=== PATIENT | male | born 1945 | race Caucasian/White ===

== ENCOUNTER → 2017-02-11 | Outpatient (REF) | payer MEDICARE, OTHER | LOC: M SMT 17:17 | PROVIDERS: ATTEND Urology | DX: C67.9 Malignant neoplasm of bladder, unspecified (principal) ==

== ENCOUNTER → 2017-08-16 | Outpatient (REF) | payer MEDICARE, OTHER | LOC: M SMT 17:36 | DX: Z85.51 Personal history of malignant neoplasm of bladder (principal) | CPT/HCPCS: 88108 ==

== ENCOUNTER → 2018-02-14 | Outpatient (REF) | payer MEDICARE, OTHER | LOC: M SMT 17:48 | DX: Z85.51 Personal history of malignant neoplasm of bladder (principal) | CPT/HCPCS: 88108 ==

== ENCOUNTER 2019-02-28 11:32 | Inpatient (IN) | payer OTHER, MEDICARE ==
[~2019-02-28] VITALS: Ht 175.3 cm; Wt 65.8 kg
[2019-02-28] MEDS ORDERED: ASPI81TA85 PO (11:44)
[2019-02-28] MEDS ORDERED: ATEN50TA2 PO (11:44)
[2019-02-28] MEDS ORDERED: SIMV40TA2 PO (11:44)
[2019-02-28] MEDS ORDERED: METF500T13 PO (11:44)
[2019-02-28] MEDS ORDERED: CLOP75TA2 PO (11:44)
[2019-02-28] MEDS ORDERED: AMLO10TA5 PO (11:44)
[2019-02-28] MEDS ORDERED: IPRATROPIUM 0.5MG/ALBUTEROL 2.5MG INH SOL UD 3ML (DUONEB)(J7620) NEB ONE (12:45)
[2019-02-28] MEDS ORDERED: ALBUTEROL SULFATE 2.5 MG/0.5 ML INH NEB SOLN INH ONE (12:45)
[2019-02-28 12:59] LABS: BASO % 0.1 % (0.0-1.0); EOS % 0.5 % (0.0-3.0); HEMATOCRIT 51.8 % (42.0-52.0); HEMOGLOBIN 17.4 g/dl (13.5-17.5); LYMPH # 0.9 10^3/uL (1.5-4.5); LYMPH % 11.7 % (24.0-44.0); MEAN CORPUSCULAR HEMOGLOBIN 32.9 pg (27.0-33.0); MEAN CORPUSCULAR HGB CONC 33.6 g/dl (32.0-36.5); MEAN CORPUSCULAR VOLUME 97.9 fl (80.0-96.0); MONO # 0.8 10^3/uL (0.0-0.8); MONO % 9.8 % (0.0-5.0); NEUTROPHILS # 6.1 10^3/uL (1.8-7.7); NEUTROPHILS % 77.4 % (36.0-66.0); PLATELET COUNT, AUTOMATED 254 10^3/uL (150-450); RED BLOOD COUNT 5.29 10^6/uL (4.30-6.10); WHITE BLOOD COUNT 7.9 10^3/uL (4.0-10.0)
[2019-02-28 13:35] LABS: ALBUMIN 3.7 GM/DL (3.2-5.2); ALT/SGPT 24 U/L (12-78); BILIRUBIN,DIRECT < 0.1 MG/DL (0.0-0.2); BILIRUBIN,TOTAL 0.3 MG/DL (0.2-1.0); BLOOD UREA NITROGEN 20 MG/DL (7-18); CALCIUM LEVEL 9.5 MG/DL (8.8-10.2); CARBON DIOXIDE LEVEL 30 MEQ/L (21-32); CHLORIDE LEVEL 104 MEQ/L (98-107); CK-MB VALUE MASS < 1.0 NG/ML (<3.6); CPK CREATINE PHOSPHOKINASE 102 U/L (39-308); CREATININE FOR GFR 1.06 MG/DL (0.70-1.30); GLOMERULAR FILTRATION RATE > 60.0 (>42); GLUCOSE, FASTING 101 MG/DL (70-100); MB/CK RELATIVE INDEX 0.98 (< OR =4); NT-PRO BNP 174 PG/ML (<125); POTASSIUM SERUM 4.1 MEQ/L (3.5-5.1); SODIUM LEVEL 141 MEQ/L (136-145); THYROID STIMULATING HORMONE 0.808 uIU/ML (0.358-3.740); TOTAL PROTEIN 7.6 GM/DL (6.4-8.2); TROPONIN I < 0.02 NG/ML (< 0.10)
--- NOTE | 2019-02-28 13:51 | REP ---
PA and lateral chest: Comparison is 08/05/2015. There is chronic hyperinflation, unchanged. There is crowding of the lung markings in the lower lung zones. These findings are compatible with COPD and require clinical confirmation. There are no infiltrates. No pleural effusions. There are no nodules or masses. Cardiac size is normal. The srikanth, mediastinum, skeletal structures are unchanged and unremarkable. Impression: Chronic hyperinflation and chronic crowding of the lung markings in the lower lung zones compatible with COPD, unchanged. There are no acute cardiopulmonary findings. Electronically Signed by Darren Do MD 02/28/2019 01:43 P
[2019-02-28] MEDS ORDERED: ISOVUE-370 76% 100ML VIAL (Q9967) As Ordered ONE (14:14)
[2019-02-28] MEDS ORDERED: dexameTHASONE 20 MG/5 ML VIAL (J1100) IV ONE (14:15)
[2019-02-28 14:25] LABS: INR 0.96; PROTHROMBIN TIME 12.5 SECONDS (11.8-14.0)
[2019-02-28 14:26] LABS: PARTIAL THROMBOPLASTIN TIME 30.3 SECONDS (25.0-38.4)
--- NOTE | 2019-02-28 15:08 | REP ---
CT ANGIOGRAM CHEST: TECHNIQUE: Axial contrast enhanced images from the thoracic inlet to the upper abdomen using 100 mL Isovue 370 intravenous contrast material with multiplanar reformations. There is no CT evidence of pulmonary embolism. There is no thoracic aortic aneurysm or dissection. Mild atherosclerotic calcifications are seen of the thoracic aorta. There is no mediastinal, hilar or chest wall lymphadenopathy. The heart is normal in size. There is no pleural or pericardial effusion. Bilateral emphysematous change is noted of a moderate degree. There are mild bibasilar fibroatelectatic changes. The visualized upper abdominal structures are unremarkable. IMPRESSION: No CT evidence of pulmonary embolism or aortic dissection. Bibasilar fibroatelectatic change. Electronically Signed by Darren Banuelos MD 03/01/2019 10:05 A
[2019-02-28] MEDS ORDERED: FLON1SPR NARES (17:57)
[2019-02-28] MEDS ORDERED: SYNT88TA2 PO (17:57)
[2019-02-28] MEDS ORDERED: PHARMACY COMMENT (17:58)
--- NOTE | 2019-02-28 18:58 | HPEPDOC ---
[facility] Medical History & Physical Date of Admission Feb 28, 2019 Date of Service: Feb 28, 2019 Attending Physician: LEONARDA CONDE MD History and Physical CHIEF COMPLAINT: Shortness of breath HISTORY OF PRESENT ILLNESS:. Patient is a 73-year-old male with history of diabetes, CAD, hypothyroidism, hypertension and COPD who presents for 3 days cough with green sputum and 1 day shortness of breath. Patient was in his usual state of health until 3 days prior to admission when he noted new onset green sputum production which is different than his normal clear sputum. Patient also noted feeling his chest more full with phlegm. These symptoms continued until day of admission when, while walking to the bathroom, patient felt hot all over and short of breath. Given these symptoms, patient decided to present to the emergency room for further evaluation. Patient endorses shortness of breath, cough productive of green sputum, chest fullness, chest discomfort with coughing, but otherwise denies fevers, chills, typical chest pain, nausea, vomiting, abdominal pain, pain with urination, leg pain or swelling. PAST MEDICAL HISTORY: 1. COPD 2. Hypertension. 3. Hyperlipidemia. 4. Hypothyroidism. 5. History of colon cancer. 6. History of bladder cancer 7. Diabetes. 8. CAD PAST SURGICAL HISTORY: 1. Colon surgery 2. Bladder surgery. 3. Tonsillectomy. 4. Carotid endarterectomy. SOCIAL HISTORY: Lives alone. Quit smoking in 2001, 3/4 pack per day for 40 years. Occasional alcohol Denies illicits FAMILY HISTORY: Aunt with cancer, denies other family history ALLERGIES: Please see below. REVIEW OF SYSTEMS: 10 point review of systems reviewed and pertinent positives and negatives documented as per HPI. All other reviewed ROS negative. HOME MEDICATIONS: Please see below. PHYSICAL EXAMINATION: VITAL SIGNS: Please see below. GENERAL APPEARANCE: Elderly man lying in stretcher in no acute distress, pleasant on interview, speaking in full sentences HEENT: PERRLA, EOMI, anicteric sclera. CARDIOVASCULAR: Regular rate and rhythm, normal S1, S2. No MRG appreciated. LUNGS: Coarse rhonchi throughout ABDOMEN: Soft, nontender, nondistended. MUSCULOSKELETAL:. No gross deformities appreciated. EXTREMITIES: No edema. Intact distal pulses NEUROLOGICAL: No focal neurologic deficits PSYCHIATRIC: A&O3, appropriate mood and affect LABORATORY DATA: See below. IMAGING: CXR (my read): Clear CP angles, hyperinflation, normal heart size, no acute disease identified CTA: No CT evidence of pulmonary embolism or aortic dissection. Bibasilar fibroatelectatic change. MICROBIOLOGY: Please see below. ASSESSMENT: Patient is a 73-year-old male with history of diabetes, CAD, hypot hyroidism, hypertension and COPD who presents for 3 days cough with green sputum and 1 day shortness of breath consistent with COPD exacerbation. . PLAN: #Hypoxic respiratory failure requiring oxygen -Continue O2 as needed to maintain sats above 88% -Continuous pulse ox #Acute COPD exacerbation -Duo nebs q6hrs -Budesonide -pred 40mg -levaquin #HTN -cont. home meds #HLD -start atorvastatin 40mg in place of simvastatin given interaction with amlodipine #CAD -cont. ASA and plavix #Hypothyroidism -cont. home synthyroid DVT PPX: Heparin subcutaneous Disposition: Home pending improvement in breathing status and oxygen requirement Vital Signs Vital Signs Date Time Temp Pulse Resp B/P (MAP) Pulse Ox O2 Delivery O2 Flow Rate FiO2 02/28/19 17:31 103 90 02/28/19 17:30 145/76 (99) 02/28/19 17:16 Room Air 02/28/19 16:31 3.0 02/28/19 11:32 97.2 18 Laboratory Data Labs 24H Laboratory Tests 2 02/28/19 12:31: Immature Granulocyte % (Auto) 0.5, White Blood Count 7.9, Red Blood Count 5.29, Hemoglobin 17.4, Hematocrit 51.8, Mean Corpuscular Volume 97.9H, Mean Corpuscular Hemoglobin 32.9, Mean Corpuscular Hemoglobin Concent 33.6, Red Cell Distribution Width 11.9, Platelet Count 254, Neutrophils (%) (Auto) 77.4H, Lymphocytes (%) (Auto) 11.7L, Monocytes (%) (Auto) 9.8H, Eosinophils (%) (Auto) 0.5, Basophils (%) (Auto) 0.1, Neutrophils # (Auto) 6.1, Lymphocytes # (Auto) 0.9L, Monocytes # (Auto) 0.8, Eosinophils # (Auto) 0.0, Basophils # (Auto) 0.0, Nucleated Red Blood Cells % (auto) 0.0, Prothrombin Time 12.5, Prothromb Time International Ratio 0.96, Activated Partial Thromboplast Time 30.3, Anion Gap 7L, Glomerular Filtration Rate > 60.0, Calcium Level 9.5, Aspartate Amino Transf (AST/SGOT) 22, Alanine Aminotransferase (ALT/SGPT) 24, Alkaline Phosphatase 114, Total Bilirubin 0.3, Direct Bilirubin < 0.1, Total Creatine Kinase 102, Creatine Kinase MB < 1.0, Creatine Kinase MB Relative Index 0.98, Troponin I < 0.02, YF-Zye-K-Type Natriuretic Peptide 174H, Total Protein 7.6, Albumin 3.7, Albumin/Globulin Ratio 0.95L, Thyroid Stimulating Hormone (TSH) 0.808 CBC/BMP Laboratory Tests 02/28/19 12:31 Red Blood Count 5.29, Mean Corpuscular Volume 97.9 H, Mean Corpuscular Hemoglobin 32.9, Mean Corpuscular Hemoglobin Concent 33.6, Red Cell Distribution Width 11.9, Neutrophils (%) (Auto) 77.4 H, Lymphocytes (%) (Auto) 11.7 L, Monocytes (%) (Auto) 9.8 H, Eosinophils (%) (Auto) 0.5, Basophils (%) (Auto) 0.1, Neutrophils # (Auto) 6.1, Lymphocytes # (Auto) 0.9 L, Monocytes # (Auto) 0.8, Eosinophils # (Auto) 0.0, Basophils # (Auto) 0.0 Microbiology Microbiology 02/28/19 Gram Stain - Final, Resulted 02/28/19 Sputum Culture, Resulted Pending Home Medications Scheduled Amlodipine Besylate (Amlodipine Besylate) 10 Mg Tablet, 5 MG PO DAILY PATIENT STATES THAT HE TYPICALLY TAKES WHOLE TABLET EVEN THOUGH RX STATES TO CUT IN HALF. Aspirin (Aspir 81) 81 Mg Tablet.dr, 81 MG PO DAILY Atenolol (Atenolol) 50 Mg Tablet, 50 MG PO DAILY Clopidogrel Bisulfate (Clopidogrel) 75 Mg Tablet, 75 MG PO DAILY Levothyroxine Sodium (Synthroid) 88 Mcg Tablet, 88 MCG PO DAILY PATIENT TAKES ONE HOUR BEFORE OTHER MEDICATIONS. Metformin HCl (Metformin HCl) 500 Mg Tablet, 500 MG PO DAILY Simvastatin (Simvastatin) 40 Mg Tablet, 20 MG PO DAILY PATIENT STATES THAT HE TYPICALLY TAKES WHOLE TABLET EVEN THOUGH RX STATES TO CUT IN HALF. Scheduled PRN Fluticasone Propionate (Flonase Allergy Relief) 9.9 Ml [place].susp, 2 SPRAY NARES DAILY PRN for JERED Miscellaneous Medications [Pharmacy Comment ] MEDICATIONS VERIFIED WITH [facility] Allergies Coded Allergies: No Known Allergies (Unverified , 02/28/19) A-FIB/CHADSVASC A-FIB History Current/History of A-Fib/PAF?: No LEONARDA CONDE MD Feb 28, 2019 18:58
[2019-02-28] MEDS ORDERED: amLODIPine 10 MG TAB PO ONE (19:00)
[2019-02-28] MEDS: IPRATROPIUM 0.5MG/ALBUTEROL 2.5MG INH SOL UD 3ML (DUONEB)(J7620) NEB SCH (19:52)
[2019-02-28] MEDS: LevoFLOXacin 750 MG TABLET PO SCH (20:37)
[2019-02-28] MEDS: BUDESONIDE 0.5 MG/2 ML INHALATION SUSPENSION INH SCH (20:37)
[2019-02-28] MEDS: ATORVASTATIN 20 MG TAB PO SCH (20:53)
[2019-02-28] MEDS: HEPARIN SOD (PORCINE) 5000 UNITS/ML VIAL SC SCH (22:24)
--- NOTE | 2019-03-01 00:20 | ECGEPIP ---
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 Order Number: [id number] Reading MD: Arias Elkins Measurements Intervals [place] Rate: 98 P: 84 CT: 155 QRS: 83 QRSD: 122 T: 57 QT: 347 QTc: 444 Interpretive Statements SINUS RHYTHM RIGHT BUNDLE BRANCH BLOCK Comparison tracing not on file Electronically Signed on 03-01-2019 0:20:36 EDT by Arias Elkins
[2019-03-01 00:38] VITALS: BP 144/70
[2019-03-01] MEDS ORDERED: ACETAMINOPHEN TAB 650MG DOSE (2X325MG) PO PRN (03:00)
[2019-03-01] MEDS: IPRATROPIUM 0.5MG/ALBUTEROL 2.5MG INH SOL UD 3ML (DUONEB)(J7620) NEB SCH ×4 (03:46→20:01)
[2019-03-01] MEDS: LEVOTHYROXINE 88MCG TABLET (0.088 MG) PO SCH (05:59)
[2019-03-01 06:00] VITALS: BP 129/69
[2019-03-01] MEDS: HEPARIN SOD (PORCINE) 5000 UNITS/ML VIAL SC SCH ×3 (06:00→21:23)
[2019-03-01 07:30] VITALS: O2SAT 92
[2019-03-01] MEDS: BUDESONIDE 0.5 MG/2 ML INHALATION SUSPENSION INH SCH ×2 (07:31→20:01)
[2019-03-01] MEDS: predniSONE 20 MG TAB PO SCH (09:12)
[2019-03-01] MEDS: ATENOLOL 50 MG TAB PO SCH (09:12)
[2019-03-01] MEDS: CLOPIDOGREL 75 MG TAB PO SCH (09:12)
[2019-03-01] MEDS: ASPIRIN 81 MG CHEW TABLET PO SCH (09:12)
[2019-03-01 14:00] VITALS: BP 125/70
[2019-03-01 14:30] VITALS: O2SAT 97
--- NOTE | 2019-03-01 15:41 | IPNPDOC ---
Subjective Date Seen The patient was seen on 03/01/19. Subjective Chief Complaint/HPI Follow-up COPD exacerbation Events since last encounter Patient seen and examined at bedside. Patient feeling better today. Breathing improved. Denies fevers, chills, chest pain, worsened SOB, nausea, vomiting, diarrhea, leg pain or swelling Objective Physical Examination General Exam: Positive: Alert, Cooperative, No Acute Distress Chest Exam: Positive: Clear to auscultation, Normal air movement; Negative: Rales, Rhonchi, Wheezing Heart Exam: Positive: Rate Normal; Negative: Murmurs Abdomen Exam: Positive: Normal bowel sounds, Soft; Negative: Tenderness Extremity Exam: Positive: Normal pulses; Negative: Edema Skin Exam: Negative: Rash, Breakdown Neuro Exam: Positive: Normal Speech, Strength at 5/5 X4 ext Psych Exam: Positive: Mental status NL, Mood NL, Oriented x 3 Assessment /Plan Assessment Patient is a 73-year-old male with history of diabetes, CAD, hypothyroidism, hypertension and COPD who presents for 3 days cough with green sputum and 1 day shortness of breath consistent with COPD exacerbation. Plan/VTE VTE Prophylaxis Ordered?: Yes Plan #Hypoxic respiratory failure requiring oxygen -titrate off O2 as pt maintaining sats in mid 90's off O2 -Continuous pulse ox #Acute COPD exacerbation -Duo nebs q6hrs -Budesonide -pred 40mg -levaquin #HTN -cont. home meds #HLD -cont. atorvastatin [address]mg [address] of simvastatin given interaction with amlodipine #CAD -cont. ASA and plavix #Hypothyroidism -cont. home synthyroid DVT PPX: Heparin subcutaneous Disposition Home pending improvement in breathing status and oxygen requirement VS, I&O, 24H, [place] Vital Signs/I&O Vital Signs Date Time Temp Pulse Resp B/P (MAP) Pulse Ox O2 Delivery O2 Flow Rate FiO2 03/01/19 14:30 97 Room Air 03/01/19 14:00 98.3 89 19 125/70 (88) 03/01/19 10:00 3.0 I&O- Last 24 Hours up to 6 AM 03/01/19 06:00 Intake Total 150 ml Output Total 225 ml Balance -75 ml Laboratory Data Microbiology Microbiology 02/28/19 Gram Stain - Final, Resulted 02/28/19 Sputum Culture, Resulted Pending LEONARDA CONDE MD Mar 01, 2019 15:41
[2019-03-01] MEDS: LevoFLOXacin 750 MG TABLET PO SCH (21:23)
[2019-03-01] MEDS: ATORVASTATIN 20 MG TAB PO SCH (21:23)
[2019-03-01 22:00] VITALS: BP 123/62
[2019-03-02] MEDS: IPRATROPIUM 0.5MG/ALBUTEROL 2.5MG INH SOL UD 3ML (DUONEB)(J7620) NEB SCH ×3 (01:55→13:01)
[2019-03-02] MEDS: LEVOTHYROXINE 88MCG TABLET (0.088 MG) PO SCH (05:44)
[2019-03-02] MEDS: HEPARIN SOD (PORCINE) 5000 UNITS/ML VIAL SC SCH ×2 (05:45→13:30)
[2019-03-02 06:00] VITALS: BP 115/71
[2019-03-02] MEDS: BUDESONIDE 0.5 MG/2 ML INHALATION SUSPENSION INH SCH (07:11)
[2019-03-02] MEDS ORDERED: LEVA750T7 PO (07:22)
[2019-03-02] MEDS ORDERED: ATOR1TAB21 PO (07:22)
[2019-03-02] MEDS ORDERED: PRED20TA PO (07:22)
[2019-03-02] MEDS: ASPIRIN 81 MG CHEW TABLET PO SCH (09:30)
[2019-03-02] MEDS: CLOPIDOGREL 75 MG TAB PO SCH (09:30)
[2019-03-02] MEDS: predniSONE 20 MG TAB PO SCH (09:30)
[2019-03-02 09:31] VITALS: BP 118/68
[2019-03-02] MEDS: ATENOLOL 50 MG TAB PO SCH (09:31)
--- NOTE | 2019-03-02 19:33 | DS.PDOC ---
Discharge Summary General Date of Admission Feb 28, 2019 at 18:17 Date of Discharge 03/02/19 Attending Physician: LEONARDA CONDE MD Discharge Summary PROCEDURES PERFORMED DURING STAY: None. ADMITTING DIAGNOSES: 1. COPD exacerbation 2. Hypertension. 3. Hyperlipidemia. 4. Hypothyroidism. 5. Diabetes. 6. CAD DISCHARGE DIAGNOSES: 1. COPD exacerbation 2. Hypertension. 3. Hyperlipidemia. 4. Hypothyroidism. 5. Diabetes. 6. CAD COMPLICATIONS/CHIEF COMPLAINT: Copd W/Exacerbation. HISTORY OF PRESENT ILLNESS: As per admission H&P: "Patient is a 73-year-old male with history of diabetes, CAD, hypothyroidism, hypertension and COPD who presents for 3 days cough with green sputum and 1 day shortness of breath. Patient was in his usual state of health until 3 days prior to admission when he noted new onset green sputum production which is different than his normal clear sputum. Patient also noted feeling his chest more full with phlegm. These symptoms continued until day of admission when, while walking to the bathroom, patient felt hot all over and short of breath. Given these symptoms, patient decided to present to the emergency room for further evaluation. Patient endorses shortness of breath, cough productive of green sputum, chest fullness, chest discomfort with coughing, but otherwise denies fevers, chills, typical chest pain, nausea, vomiting, abdominal pain, pain with urination, leg pain or swelling." HOSPITAL COURSE: Pt maintained on pred 40mg, levaquin with rapid improvement in symptoms. Pt titrated off O2 with improvement in cough and wheezing. Pt seen and examined on day of discharge. Pt feeling well with no complaints. Denies fever, chills, CP, SOB, N/V/D, leg pain or swelling. Given well appearance, off O2 and feeling well pt deemed stable to be discharged home with close follow up. DISCHARGE MEDICATIONS: Please see below. ALLERGIES: Please see below. PHYSICAL EXAMINATION ON DISCHARGE: VITAL SIGNS: Please see below. GENERAL: laying in bed in NAD, breathing comfortably, no accessory muscle use CARDIOVASCULAR EXAMINATION: RRR, nl s1/2 RESPIRATORY EXAMINATION: CTA b/l no w/r/r ABDOMINAL EXAMINATION: soft, NT, ND EXTREMITIES: no gross deformities SKIN: no rashes or skin breakdown NEUROLOGICAL EXAMINATION: no focal deficits PSYCHIATRIC EXAMINATION: nl mental status, A&Ox3 LABORATORY DATA: Please see below. ACTIVITY: As tolerated. DIET: cardiac diabetic DISCHARGE PLAN: follow up with PMD DISPOSITION: 01 Home, Self-Care. DISCHARGE INSTRUCTIONS: 1. Please follow up with your PMD 2. Please complete steroid pulse 3. Please complete your antibiotic course ITEMS TO FOLLOWUP ON ON OUTPATIENT: none DISCHARGE CONDITION: Stable. TIME SPENT ON DISCHARGE: 35 minutes. Vital Signs/I&Os Vital Signs Date Time Temp Pulse Resp B/P (MAP) Pulse Ox O2 Delivery O2 Flow Rate FiO2 03/02/19 09:31 88 118/68 03/02/19 06:00 97.1 20 94 03/01/19 14:30 Room Air 03/01/19 10:00 3.0 I&O- Last 24 Hours up to 6 AM 03/02/19 06:00 Intake Total 820 ml Output Total 975 ml Balance -155 ml Microbiology Microbiology 02/28/19 Gram Stain - Final, Complete 02/28/19 Sputum Culture - Final, Complete Enterobacter Cloacae Complex Discharge Medications Scheduled Amlodipine Besylate (Amlodipine Besylate) 10 Mg Tablet, 5 MG PO DAILY, (Reported) PATIENT STATES THAT HE TYPICALLY TAKES WHOLE TABLET EVEN THOUGH RX STATES TO CUT IN HALF. Aspirin (Aspir 81) 81 Mg Tablet.dr, 81 MG PO DAILY, (Reported) Atenolol (Atenolol) 50 Mg Tablet, 50 MG PO DAILY, (Reported) Atorvastatin Calcium (Atorvastatin Calcium) 20 Mg Tablet, 40 MG PO QHS Clopidogrel Bisulfate (Clopidogrel) 75 Mg Tablet, 75 MG PO DAILY, (Reported) Levofloxacin (Levaquin) 750 Mg Tablet, 750 MG PO DAILY@2100 Levothyroxine Sodium (Synthroid) 88 Mcg Tablet, 88 MCG PO DAILY, (Reported) PATIENT TAKES ONE HOUR BEFORE OTHER MEDICATIONS. Metformin HCl (Metformin HCl) 500 Mg Tablet, 500 MG PO DAILY, (Reported) Prednisone (Prednisone) 20 Mg Tablet, 40 MG PO DAILY Scheduled PRN Fluticasone Propionate (Flonase Allergy Relief) 9.9 Ml [place].susp, 2 SPRAY NARES DAILY PRN for JERED, (Reported) Miscellaneous Medications [Pharmacy Comment ] , (Reported) MEDICATIONS VERIFIED WITH [facility] Allergies Coded Allergies: No Known Allergies (Unverified , 02/28/19) LEONARDA CONDE MD Mar 02, 2019 19:33
== END 2019-03-02 13:45 | disposition home or self-care (01) | DRG 189 ==
LOC: M ED 11:32 → M ED INP 18:17 → M MSPAV 03-01 00:35
PROVIDERS: ADMIT Internal Medicine; ATTEND Internal Medicine
DX: J96.91 Respiratory failure, unspecified with hypoxia (principal); J44.1 Chronic obstructive pulmonary disease with (acute) exacerbation; I10 Essential (primary) hypertension; E78.5 Hyperlipidemia, unspecified; I25.10 Atherosclerotic heart disease of native coronary artery without angina pectoris; E11.9 Type 2 diabetes mellitus without complications; E03.9 Hypothyroidism, unspecified; Z79.82 Long term (current) use of aspirin; Z79.899 Other long term (current) drug therapy; Z85.038 Personal history of other malignant neoplasm of large intestine; Z85.51 Personal history of malignant neoplasm of bladder; Z87.891 Personal history of nicotine dependence

== ENCOUNTER → 2019-09-22 | Outpatient (REF) | payer MEDICARE, OTHER ==
[~2019-09-22] MED LIST: AMLO10TA5 PO; ASPI81TA85 PO; ATEN50TA2 PO; ATOR1TAB21 PO; CLOP75TA2 PO; FLON1SPR NARES; LEVA750T7 PO; METF500T13 PO; PHARMACY COMMENT; PRED20TA PO; SIMV40TA20 PO; SYNT88TA2 PO
[2019-09-22 14:12] LABS: BACTERIA, URINE AUTO NEGATIVE (NEGATIVE); RBC, URINE AUTO 0 /HPF (0-3); SQUAMOUS EPITHELIAL CELL UR AU 0 /HPF (0-6); WBC, URINE AUTO 0 /HPF (0-3)
== END ==
LOC: M SMT 13:41
PROVIDERS: ATTEND Specialist
DX: C67.9 Malignant neoplasm of bladder, unspecified (principal); Z79.899 Other long term (current) drug therapy
CPT/HCPCS: 52000; 81015; 87086; 88108; G0463

== ENCOUNTER → 2020-01-08 | Outpatient (CLI) | payer OTHER ==
[~2020-01-08] MED LIST changes: +NO ITAB PO; +PULM90IN INH; +SPIR1CAP INH
== END ==
LOC: M LABSMTC 11:09
PROVIDERS: ATTEND Anesthesiology
DX: Z01.818 Encounter for other preprocedural examination (principal); Z11.59 Encounter for screening for other viral diseases
CPT/HCPCS: C9803; U0003

== ENCOUNTER 2020-01-11 07:07 | Day surgery (SDC) | payer OTHER ==
[~2020-01-11] VITALS: Ht 175.3 cm; Wt 68.9 kg
[~2020-01-11 07:07] MED LIST changes: +NS 1,000 ML IV ONE; +SIMETHICONE 40MG/0.6ML DROPS 30ML As Ordered ONE
[2020-01-11] MEDS ORDERED: LIDOCAINE 2% 100MG/5ML SDV (FOR ANES.) As Ordered ONE (08:00)
[2020-01-11] MEDS ORDERED: propofoL 200 MG/20 ML VIAL As Ordered ONE (08:00)
[2020-01-11] MEDS ORDERED: ePHEDrine SULFATE 25 MG/5 ML(5MG/ML) SYRINGE As Ordered ONE (08:30)
--- NOTE | 2020-01-11 08:49 | ROOR ---
Patient Name: Venancio Giles Procedure Date: 01/11/2020 8:13 AM Date of : 1945 Age: 74 Room: [facility] Gender: Male Note Status: Finalized Procedure: Colonoscopy Indications: High risk colon cancer surveillance: Personal history of colon cancer Providers: Rahul Ackerman Jr, MD Referring MD: UMER GOMEZ Requesting Provider: Medicines: Propofol per Anesthesia Complications: No immediate complications. Procedure: Pre-Anesthesia Assessment: - Prior to the procedure, a History and Physical was performed, and patient medications and allergies were reviewed. The patient is competent. The risks and benefits of the procedure and the sedation options and risks were discussed with the patient. All questions were answered and informed consent was obtained. Patient identification and proposed procedure were verified by the physician and the nurse in the pre-procedure area and in the procedure room. Mental Status Examination: alert and oriented. Airway Examination: normal oropharyngeal airway and neck mobility. Respiratory Examination: clear to auscultation. CV Examination: normal. ASA Grade Assessment: II - A patient with mild systemic disease. After reviewing the risks and benefits, the patient was deemed in satisfactory condition to undergo the procedure. The anesthesia plan was to use moderate sedation / analgesia (conscious sedation). Immediately prior to administration of medications, the patient was re-assessed for adequacy to receive sedatives. The heart rate, respiratory rate, oxygen saturations, blood pressure, adequacy of pulmonary ventilation, and response to care were monitored throughout the procedure. The physical status of the patient was re-assessed after the procedure. The Colonoscope was introduced through the anus and advanced to the cecum, identified by appendiceal orifice and ileocecal valve. The patient tolerated the procedure well. The colonoscopy was performed without difficulty. The quality of the bowel preparation was fair. Findings: Six polyps were found in the descending colon, transverse colon, ascending colon and cecum. The polyps were small in size. These polyps were removed with a hot snare. Resection and retrieval were complete. The rectum, recto-sigmoid colon, splenic flexure, appendiceal orifice, ileocecal valve and anastomosis appeared normal. Impression: - Preparation of the colon was fair. - Six small polyps in the descending colon, in the transverse colon, in the ascending colon and in the cecum, removed with a hot snare. Resected and retrieved. - The rectum, recto-sigmoid colon, splenic flexure, appendiceal orifice, ileocecal valve and colonic anastomosis are normal. Recommendation: - Discharge patient to home (ambulatory). - Repeat colonoscopy in 3 - 5 years for surveillance. Rahul Ackerman MD Rahul Ackerman Jr, MD 01/11/2020 8:48:46 AM Electronically signed by Rahul Ackerman Jr, MD Number of Addenda: 0 Note Initiated On: 01/11/2020 8:13 AM Estimated Blood Loss: Estimated blood loss: none.
[2020-01-11 09:17] VITALS: BP 113/71
== END 2020-01-11 09:19 | disposition home or self-care (01) ==
LOC: M OPP 07:07
PROVIDERS: ATTEND Surgery
DX: Z12.11 Encounter for screening for malignant neoplasm of colon (principal); Z85.038 Personal history of other malignant neoplasm of large intestine; K63.5 Polyp of colon; Z79.84 Long term (current) use of oral hypoglycemic drugs; Z79.899 Other long term (current) drug therapy; Z91.048 Other nonmedicinal substance allergy status

== ENCOUNTER 2020-03-25 10:29 | Emergency (ER) | payer OTHER, MEDICARE ==
[~2020-03-25 10:29] MED LIST changes: -AMLO10TA5 PO; +AMLO1TAB25 PO; -ASPI81TA85 PO; +ASPI81TA86 PO; -NS 1,000 ML IV ONE; -SIMETHICONE 40MG/0.6ML DROPS 30ML As Ordered ONE
[2020-03-25] MEDS ORDERED: ISOVUE-370 76% 100ML VIAL As Ordered ONE (12:51)
--- NOTE | 2020-04-24 15:29 | ECGEPIP ---
SINUS RHYTHM WITH OCCASIONAL VENTRICULAR PREMATURE COMPLEXES RIGHT BUNDLE BRANCH BLOCK ABNORMAL ECG SEE SCANNED DOWNTIME REPORT MTDD
[2020-05-09 11:47] LABS: BASO % 0.2 % (0.0-1.0); EOS # 0.2 10^3/uL (0.0-0.5); EOS % 1.3 % (0.0-3.0); HEMATOCRIT 48.9 % (42.0-52.0); HEMOGLOBIN 16.3 g/dl (13.5-17.5); LYMPH # 2.5 10^3/uL (1.5-5.0); LYMPH % 20.6 % (24.0-44.0); MEAN CORPUSCULAR HEMOGLOBIN 32.5 pg (27.0-33.0); MEAN CORPUSCULAR HGB CONC 33.3 g/dl (32.0-36.5); MEAN CORPUSCULAR VOLUME 97.4 fl (80.0-96.0); MONO # 1.7 10^3/uL (0.0-0.8); MONO % 14.3 % (0.0-5.0); NEUTROPHILS # 7.7 10^3/uL (1.5-8.5); NEUTROPHILS % 63.3 % (36.0-66.0); PLATELET COUNT, AUTOMATED 282 10^3/uL (150-450); RED BLOOD COUNT 5.02 10^6/uL (4.30-6.10); WHITE BLOOD COUNT 12.2 10^3/uL (4.0-10.0)
[2020-06-16 16:17] LABS: ALBUMIN 3.8 GM/DL (3.2-5.2); ALT/SGPT 25 U/L (12-78); BILIRUBIN,TOTAL 0.7 MG/DL (0.2-1.0); BLOOD UREA NITROGEN 14 MG/DL (7-18); CALCIUM LEVEL 9.2 MG/DL (8.8-10.2); CARBON DIOXIDE LEVEL 31 MEQ/L (21-32); CHLORIDE LEVEL 103 MEQ/L (98-107); CK-MB VALUE MASS < 1.0 NG/ML (<3.6); CPK CREATINE PHOSPHOKINASE 165 U/L (39-308); CREATININE FOR GFR 1.03 MG/DL (0.70-1.30); GLOMERULAR FILTRATION RATE > 60.0 (>42); GLUCOSE, FASTING 99 MG/DL (70-100); MB/CK RELATIVE INDEX 0.61 (< OR =4); POTASSIUM SERUM 4.1 MEQ/L (3.5-5.1); SODIUM LEVEL 138 MEQ/L (136-145); TROPONIN I < 0.02 NG/ML (< 0.10)
== END 2020-03-25 15:30 | disposition home or self-care (01) ==
LOC: M ED 10:29
DX: R07.81 Pleurodynia (principal); E11.9 Type 2 diabetes mellitus without complications; I10 Essential (primary) hypertension; E78.5 Hyperlipidemia, unspecified; J44.9 Chronic obstructive pulmonary disease, unspecified; Z87.891 Personal history of nicotine dependence; Z95.828 Presence of other vascular implants and grafts; R93.89 Abnormal findings on diagnostic imaging of other specified body structures; I70.0 Atherosclerosis of aorta; I45.10 Unspecified right bundle-branch block; R94.31 Abnormal electrocardiogram [ECG] [EKG]; R91.1 Solitary pulmonary nodule; Z79.84 Long term (current) use of oral hypoglycemic drugs; Z79.899 Other long term (current) drug therapy; Z91.89 Other specified personal risk factors, not elsewhere classified
CPT/HCPCS: 71045; 71275; 80053; 82553; 84484; 85025; 93005; 99284; Q9967

== ENCOUNTER 2020-04-05 18:38 | Inpatient (IN) | payer OTHER, MEDICARE ==
[~2020-04-05] VITALS: Ht 175.3 cm; Wt 65.8 kg
[2020-04-05] MEDS ORDERED: BENZONATATE 100 MG CAP PO ONE (20:15)
[2020-04-05 20:52] LABS: BASO % 0.3 % (0.0-1.0); EOS # 0.2 10^3/uL (0.0-0.5); EOS % 1.3 % (0.0-3.0); HEMATOCRIT 49.7 % (42.0-52.0); HEMOGLOBIN 16.3 g/dl (13.5-17.5); LYMPH # 1.2 10^3/uL (1.5-5.0); LYMPH % 9.4 % (24.0-44.0); MEAN CORPUSCULAR HEMOGLOBIN 31.5 pg (27.0-33.0); MEAN CORPUSCULAR HGB CONC 32.8 g/dl (32.0-36.5); MEAN CORPUSCULAR VOLUME 96.1 fl (80.0-96.0); MONO # 1.4 10^3/uL (0.0-0.8); MONO % 11.4 % (0.0-5.0); NEUTROPHILS # 9.5 10^3/uL (1.5-8.5); NEUTROPHILS % 76.7 % (36.0-66.0); PLATELET COUNT, AUTOMATED 676 10^3/uL (150-450); RED BLOOD COUNT 5.17 10^6/uL (4.30-6.10); WHITE BLOOD COUNT 12.4 10^3/uL (4.0-10.0)
--- NOTE | 2020-04-05 21:02 | REPVR ---
PROCEDURE INFORMATION: Exam: XR Chest, 2 Views Exam date and time: 04/05/2020 8:27 PM Age: 74 years old Clinical indication: Other: Hemoptysis TECHNIQUE: Imaging protocol: XR of the chest Views: 2 views. COMPARISON: [place] Chest, 2 view PA, Lat 02/28/2019 1:36 PM FINDINGS: Lungs: There is a 6 cm density in the left upper lobe with the areas of cavitation suggestive of a mass with cavitation. Pleural space: Unremarkable. No pleural effusion. No pneumothorax. Heart/Mediastinum: Unremarkable. No cardiomegaly. Bones/joints: Unremarkable. IMPRESSION: Possible mass in the left upper lobe with areas of cavitation. CT chest is recommended for complete the examination. Electronically signed by: Wilman Nice On 04/05/2020 21:02:17 PM
[2020-04-05 21:07] LABS: INR 1.11; PROTHROMBIN TIME 14.6 SECONDS (11.8-14.0)
[2020-04-05 21:08] LABS: PARTIAL THROMBOPLASTIN TIME 37.2 SECONDS (25.0-38.4)
[2020-04-05] MEDS ORDERED: NS 1,000 ML IV ONE (21:30)
[2020-04-05] MEDS ORDERED: ISOVUE-370 76% 100ML VIAL As Ordered ONE (21:37)
[2020-04-05] MEDS ORDERED: PIPERACILLIN/TAZOBACTAM SOD 3.375 GM in D5W MINI-BAG PLUS 50 ML IV ONE (21:45)
--- NOTE | 2020-04-05 22:30 | REPVR ---
PROCEDURE INFORMATION: Exam: CT Chest With Contrast Exam date and time: 04/05/2020 10:10 PM Age: 74 years old Clinical indication: Condition or disease; Other: Left pulmonary mass/infection TECHNIQUE: Imaging protocol: Computed tomography of the chest with intravenous contrast. 3D rendering (Not supervised by radiologist): MIP and/or 3D reconstructed images were created by the technologist. Radiation optimization: All CT scans at this facility use at least one of these dose optimization techniques: automated exposure control; mA and/or kV adjustment per patient size (includes targeted exams where dose is matched to clinical indication); or iterative reconstruction. Contrast material: ISOVUE 370; Contrast volume: 75 ml; Contrast route: INTRAVENOUS (IV); COMPARISON: CT ANGIO CHEST 02/28/2019 2:12 PM FINDINGS: Lungs: Extensive emphysematous changes. There are patchy consolidations in the left upper lobe. Some consolidations in the lingula. Pleural space: Unremarkable. No pneumothorax. No pleural effusion. Heart: Unremarkable. No cardiomegaly. No pericardial effusion. Aorta: Unremarkable. No aortic aneurysm. Lymph nodes: Unremarkable. No enlarged lymph nodes. Bones/joints: Unremarkable. No acute fracture. Soft tissues: Unremarkable. IMPRESSION: Patchy consolidations overlying extensive emphysematous changes in the left upper lobe and some in lingula. Etiology likely infectious/pneumonia. No localized abscess. Electronically signed by: Wilman Nice On 04/05/2020 22:30:07 PM
[2020-04-05] MEDS ORDERED: SPIR12.9 INH (23:14)
[2020-04-05] MEDS ORDERED: ROSU40TA4 PO (23:19)
[2020-04-05] MEDS ORDERED: ASPI81CH33 PO (23:19)
[2020-04-05] MEDS ORDERED: VENTAER INH (23:19)
[2020-04-05] MEDS ORDERED: SYMB16INH INH (23:19)
[2020-04-06] MEDS ORDERED: ACETAMINOPHEN TAB 650MG DOSE (2X325MG) PO PRN (00:30)
[2020-04-06] MEDS ORDERED: ALBUTEROL SULFATE 2.5 MG/0.5 ML INH NEB SOLN NEB PRN (00:30)
[2020-04-06] MEDS ORDERED: methylPREDNISolone 125MG 2ML VIAL IV STA (00:30)
[2020-04-06] MEDS ORDERED: MOM 30ML SUSPENSION UDC PO PRN (00:30)
--- NOTE | 2020-04-06 00:54 | HPEPDOC ---
[facility] Medical History & Physical Date of Admission Apr 06, 2020 Date of Service: Apr 06, 2020 Other Provider Amina OWUSU Attending Physician: DIONY PATE MD History and Physical TIME OF SERVICE: 1255AM CHIEF COMPLAINT: bloody sputum HISTORY OF PRESENT ILLNESS: This 74 yr old M presented w c/o blood sputum when he coughs for 6 days associated with left sided chest pain which he attributes to coughing, dizziness while walking, fever as high as 104 and chills. He denies wheezing, sick contacts or traveling. He denies changes in his chronic dyspnea and reports chronically having headaches. While walking in the ER his O2 sat dropped to 83%. REVIEW OF SYSTEMS: 12 point review of systems negative except as listed in HPI PAST MEDICAL/ SURGICAL HISTORY: COPD HTN Colon CA s/p partial colectomy Bladder CA Carotid stents Dyslipidemia Hypothyroidism SOCIAL HISTORY: Former smoker / [employer] FAMILY HISTORY: Reviewed per pt unknown ALLERGIES: Please see below. HOME MEDICATIONS: Please see below. PHYSICAL EXAMINATION: Vital Signs Date Time Temp Pulse Resp B/P (MAP) Pulse Ox O2 Delivery O2 Flow Rate FiO2 04/05/20 18:38 97.8 65 18 142/82 (102) 94 Room Air 04/06/20 01:21 2.0 GENERAL APPEARANCE: slim build / well developed HEENT: EOMI / MMM&P / NC in place CARDIOVASCULAR: RRR/ NMRG/ no BLE edema LUNGS: decreased air entry /no use of accessory muscles / no wheezing ABDOMEN: flat MUSCULOSKELETAL: NCAT / PATRICIA x 4 INTEGUMENT: lips not cyanotic NEUROLOGICAL: CN 2-12 intact / speech not dysarthric PSYCHIATRIC: A&Ox 3 / able to understand and follow commands LABORATORY DATA: 04/05/20 20:31 POC Na 138, K 3.9, Cl 97, Ca 4.6, CO2 27, Glucose 113, BUN 25, Cr 1.1 AG 18 IMAGING: Chest xray IMPRESSION: Possible mass in the left upper lobe with areas of cavitation. CT chest is recommended for complete the examination. CT chest IMPRESSION: Patchy consolidations overlying extensive emphysematous changes in the left upper lobe and some in lingula. Etiology likely infectious/pneumonia. No localized abscess. MICROBIOLOGY: 04/05/20 Blood Culture, Received Pending 04/05/20 Blood Culture, Received Pending ASSESSMENT: is a 74 yr old former smoker w COPD who presented w hemoptysis and will be admitted for management of acute COPD 2/2 pneumonia. PLAN: 1 Hemoptysis 2/2 Pneumonia CURB 65 score to determine if pt should be admitted = 2 points = moderate risk Plan: admit to medical floor/ f/u sputum cx, blood cx, MRSA bc he was in the hospital recently, strep pneumo and legionella / Levofloxacin and Vancomycin / Acetaminophen PRN for fever 2 Hypoxia likely 2/2 Acute COPD trigger: PNA Plan: supplemental O2 / pulse oximetry / aspiration precautions / COPD diet / solmedrol now /Dunebs Q6H, Albuterol Q4HP, Prednisone + PPI / Levofloxacin, Tessalon Pearls / refer to [facility] for repeat PFTs and Pulmonary Rehab when ready for d/c 3. HTN Plan: amlodipine 4. Carotid stents / Dyslipidemia Plan: ASA, Plavix, statin 5. Hypothyroidism Plan: levothyroxine DVT Px w Lovenox Dispo: home after more than 2 midnights stay Home Medications Scheduled Amlodipine Besylate (Amlodipine Besylate) 10 Mg Tablet, 5 MG PO DAILY Aspirin (Aspirin) 81 Mg Tab.chew, 81 MG PO DAILY Atenolol (Atenolol) 50 Mg Tablet, 50 MG PO DAILY Budesonide/Formoterol (Symbicort 160-4.5 Mcg Inhaler) 6 Gm Hfa.aer.ad, 2 PUFF INH BID Clopidogrel Bisulfate (Clopidogrel) 75 Mg Tablet, 75 MG PO QHS Fluticasone Propionate (Flonase Allergy Relief) 9.9 Ml [place].susp, 1 SPRAY NARES DAILY Levothyroxine Sodium (Synthroid) 88 Mcg Tablet, 88 MCG PO QAM PATIENT TAKES ONE HOUR BEFORE OTHER MEDICATIONS. Metformin HCl (Metformin HCl) 500 Mg Tablet, 250 MG PO BID Multivitamin with Minerals (Multiple Vitamin) 1 Each Tablet, 1 TAB PO DAILY Rosuvastatin Calcium (Rosuvastatin Calcium) 40 Mg Tablet, 40 MG PO QPM Tiotropium [place] (Spiriva Respimat) 4 Gm Mist.inhal, 2 INHALATION INH DAILY Scheduled PRN Albuterol Sulfate (Ventolin Hfa) 18 Gm Hfa.aer.ad, 2 PUFFS INH QID PRN for SHORTNESS OF BREATH Allergies Coded Allergies: No Known Allergies (Unverified , 02/28/19) A-FIB/CHADSVASC A-FIB History Current/History of A-Fib/PAF?: No Current PO Anticoag Therapy: No DIONY PATE MD Apr 06, 2020 00:54
[2020-04-06] MEDS ORDERED: VANCOMYCIN HCL 750 MG, VIAL MATE ADAPTER 1 EACH in D5W 250 ML IV SCH (01:30)
[2020-04-06] MEDS: IPRATROPIUM 0.5MG/ALBUTEROL 2.5MG INH SOL UD 3ML (DUONEB) NEB SCH ×4 (01:34→20:00)
[2020-04-06] MEDS ORDERED: VANCOMYCIN HCL 1,000 MG, VIAL MATE ADAPTER 1 EACH in D5W 250 ML IV ONE (02:00)
[2020-04-06 02:01] LABS: CREATININE FOR GFR 1.13 MG/DL (0.70-1.30); GLOMERULAR FILTRATION RATE > 60.0 (>42)
[2020-04-06 02:36] VITALS: BP 122/68
[2020-04-06] MEDS ORDERED: VANCOMYCIN HCL 750 MG, VIAL MATE ADAPTER 1 EACH in D5W 250 ML IV ONE (03:00)
[2020-04-06] MEDS: CLOPIDOGREL 75 MG TAB PO SCH ×2 (03:14→20:31)
[2020-04-06] MEDS: ROSUVASTATIN 10 MG TAB (CRESTOR) PO SCH ×2 (03:14→20:32)
[2020-04-06] MEDS ORDERED: VANCOMYCIN HCL 500 MG in D5W MINI-BAG PLUS 100 ML IV ONE (04:00)
[2020-04-06] MEDS: LEVOTHYROXINE 88MCG TABLET (0.088 MG) PO SCH (06:21)
[2020-04-06] MEDS: SYMBICORT 160/4.5MCG INHALER 6GM INH SCH ×2 (08:00→20:07)
[2020-04-06] MEDS ORDERED: amLODIPine 5 MG TAB PO SCH (09:00)
[2020-04-06] MEDS: LevoFLOXacin IV 750 MG in IV 1 EA IV SCH (10:16)
[2020-04-06] MEDS: PANTOPRAZOLE 40MG TAB (PROTONIX) PO SCH (10:46)
[2020-04-06] MEDS: ASPIRIN 81 MG CHEW TABLET PO SCH (10:46)
[2020-04-06] MEDS: predniSONE 20 MG TAB PO SCH (10:46)
[2020-04-06] MEDS: ENOXAPARIN 40MG/0.4ML SYRINGE (J1650 PER 10MG) SC SCH (10:47)
[2020-04-06] MEDS: atenoloL 50 MG TAB PO SCH (10:48)
[2020-04-06] MEDS: FLUTICASONE PROP 0.05% NASAL SPRAY 16 GM (FLONASE) NARES SCH (12:26)
[2020-04-06 14:00] VITALS: BP 108/60
[2020-04-06 18:00] VITALS: O2SAT 90
[2020-04-06] MEDS ORDERED: VANCOMYCIN HCL 1,000 MG, VIAL MATE ADAPTER 1 EACH in D5W 250 ML IV SCH (21:00)
[2020-04-06 22:00] VITALS: BP 106/73
[2020-04-07] MEDS: IPRATROPIUM 0.5MG/ALBUTEROL 2.5MG INH SOL UD 3ML (DUONEB) NEB SCH ×3 (01:24→13:13)
[2020-04-07] MEDS: LEVOTHYROXINE 88MCG TABLET (0.088 MG) PO SCH (05:43)
[2020-04-07 06:27] VITALS: BP 104/66
[2020-04-07 07:28] LABS: HEMATOCRIT 41.8 % (42.0-52.0); HEMOGLOBIN 13.9 g/dl (13.5-17.5); MEAN CORPUSCULAR HEMOGLOBIN 31.9 pg (27.0-33.0); MEAN CORPUSCULAR HGB CONC 33.3 g/dl (32.0-36.5); MEAN CORPUSCULAR VOLUME 95.9 fl (80.0-96.0); PLATELET COUNT, AUTOMATED 615 10^3/uL (150-450); RED BLOOD COUNT 4.36 10^6/uL (4.30-6.10); WHITE BLOOD COUNT 18.6 10^3/uL (4.0-10.0)
[2020-04-07 07:49] LABS: BLOOD UREA NITROGEN 18 MG/DL (7-18); CALCIUM LEVEL 9.2 MG/DL (8.8-10.2); CARBON DIOXIDE LEVEL 28 MEQ/L (21-32); CHLORIDE LEVEL 107 MEQ/L (98-107); GLOMERULAR FILTRATION RATE > 60.0 (>42); GLUCOSE, FASTING 117 MG/DL (70-100); MAGNESIUM LEVEL 2.3 MG/DL (1.8-2.4); POTASSIUM SERUM 4.8 MEQ/L (3.5-5.1); SODIUM LEVEL 141 MEQ/L (136-145)
[2020-04-07] MEDS: SYMBICORT 160/4.5MCG INHALER 6GM INH SCH (08:15)
[2020-04-07] MEDS: LevoFLOXacin IV 750 MG in IV 1 EA IV SCH (08:56)
[2020-04-07] MEDS: ASPIRIN 81 MG CHEW TABLET PO SCH (08:57)
[2020-04-07] MEDS: ENOXAPARIN 40MG/0.4ML SYRINGE (J1650 PER 10MG) SC SCH (08:57)
[2020-04-07] MEDS: predniSONE 20 MG TAB PO SCH (08:57)
[2020-04-07] MEDS: PANTOPRAZOLE 40MG TAB (PROTONIX) PO SCH (08:58)
[2020-04-07] MEDS: atenoloL 50 MG TAB PO SCH ×2 (08:59→09:00)
[2020-04-07 09:00] VITALS: BP 104/51
[2020-04-07] MEDS: FLUTICASONE PROP 0.05% NASAL SPRAY 16 GM (FLONASE) NARES SCH (09:03)
[2020-04-07] MEDS ORDERED: LEVO750T13 PO (12:15)
[2020-04-07] MEDS ORDERED: PRED20TA PO (12:15)
[2020-04-07] MEDS ORDERED: DOXY-350 PO (15:33)
--- NOTE | 2020-04-07 15:39 | DS.PDOC ---
Discharge Summary General Date of Admission Apr 06, 2020 at 00:30 Date of Discharge 04/07/20 Discharge Summary PROCEDURES PERFORMED DURING STAY: [None]. DISCHARGE DIAGNOSES: Community Acquired Pneumonia Hypoxia COPD exacerbation SECONDARY DIAGNOSIS: HTN Colon CA s/p partial colectomy Bladder CA Carotid artery disease s/p Carotid stents Dyslipidemia Hypothyroidism COMPLICATIONS/CHIEF COMPLAINT: Copd With Exacerbation,Hypoxia,Pneumonia. HOSPITAL COURSE: is a 74 yr old former smoker w COPD who presented with hemoptysis and SOB found to be hypoxic. He was admitted for Pneumonia and COPD exacerbation. Pneumonia with hemoptysis hemoptysis stopped. will continue with levofloxacin. MRSA pcr was positive will also give doxycycline. COPD exacerbation resolved will give short course of prednisone, continue home nebs and inhalers. Hypoxia likely 2/2 Acute COPD now resolved. HTN amlodipine Carotid stents / Dyslipidemia ASA, Plavix, statin Hypothyroidism levothyroxine DISCHARGE MEDICATIONS: Please see below. ALLERGIES: Please see below. PHYSICAL EXAMINATION ON DISCHARGE: VITAL SIGNS: Please see below. GENERAL APPEARANCE: slim build / well developed HEENT: EOMI / MMM/ anicteric CARDIOVASCULAR: RRR/ NMRG/ no BLE edema LUNGS: decreased air entry /no use of accessory muscles / no wheezing ABDOMEN: flat, bowel sounds normal. MUSCULOSKELETAL: NCAT / PATRICIA x 4 NEUROLOGICAL: CN 2-12 intact / speech not dysarthric PSYCHIATRIC: A&Ox 3 / able to understand and follow commands LABORATORY DATA: Please see below. ACTIVITY: [As tolerated]. DIET: As tolerated DISPOSITION: 01 Home, Self-Care. DISCHARGE INSTRUCTIONS: Follow up PMD in 1 week ITEMS TO FOLLOWUP ON ON OUTPATIENT: final culture results Urine legionella, s.pneumoniae DISCHARGE CONDITION: [Stable]. TIME SPENT ON DISCHARGE: 35 minutes. Vital Signs/I&Os Vital Signs Date Time Temp Pulse Resp B/P (MAP) Pulse Ox O2 Delivery O2 Flow Rate FiO2 04/07/20 10:31 1.0 04/07/20 09:00 86 104/51 04/07/20 06:27 98.7 18 94 Nasal Cannula I&O- Last 24 Hours up to 6 AM 04/07/20 06:00 Intake Total 2475 ml Output Total 1900 ml Balance 575 ml Laboratory Data Labs 24H Laboratory Tests 2 04/07/20 07:09: Nucleated Red Blood Cells % (auto) 0.0, Anion Gap 6L, Glomerular Filtration Rate > 60.0, Calcium Level 9.2, Magnesium Level 2.3 CBC/BMP Laboratory Tests 04/07/20 07:09 Microbiology Microbiology 04/06/20 Gram Stain - Final, Resulted 04/06/20 Sputum Culture, Resulted Pending 04/05/20 Blood Culture - Preliminary, Resulted No growth after 24 hours . All specim... 04/05/20 Blood Culture - Preliminary, Resulted No growth after 24 hours . All specim... Discharge Medications Scheduled Amlodipine Besylate (Amlodipine Besylate) 10 Mg Tablet, 5 MG PO DAILY, (Reported) Aspirin (Aspirin) 81 Mg Tab.chew, 81 MG PO DAILY, (Reported) Atenolol (Atenolol) 50 Mg Tablet, 50 MG PO DAILY, (Reported) Budesonide/Formoterol (Symbicort 160-4.5 Mcg Inhaler) 6 Gm Hfa.aer.ad, 2 PUFF INH BID, (Reported) Clopidogrel Bisulfate (Clopidogrel) 75 Mg Tablet, 75 MG PO QHS, (Reported) Fluticasone Propionate (Flonase Allergy Relief) 9.9 Ml [place].susp, 1 SPRAY NARES DAILY, (Reported) Levofloxacin (Levofloxacin) 750 Mg Tablet, 750 MG PO DAILY Levothyroxine Sodium (Synthroid) 88 Mcg Tablet, 88 MCG PO QAM, (Reported) PATIENT TAKES ONE HOUR BEFORE OTHER MEDICATIONS. Metformin HCl (Metformin HCl) 500 Mg Tablet, 250 MG PO BID, (Reported) Multivitamin with Minerals (Multiple Vitamin) 1 Each Tablet, 1 TAB PO DAILY, (Reported) Prednisone (Prednisone) 20 Mg Tablet, 40 MG PO DAILY For 3 days Rosuvastatin Calcium (Rosuvastatin Calcium) 40 Mg Tablet, 40 MG PO QPM, (Reported) Tiotropium [place] (Spiriva Respimat) 4 Gm Mist.inhal, 2 INHALATION INH DAILY, ( Reported) Scheduled PRN Albuterol Sulfate (Ventolin Hfa) 18 Gm Hfa.aer.ad, 2 PUFFS INH QID PRN for SHORTNESS OF BREATH, (Reported) Allergies Coded Allergies: No Known Allergies (Unverified , 02/28/19) JASWANT SANCHEZ MD Apr 07, 2020 15:39
[2020-04-08 15:07] LABS: BODY FLUID CULTURE Not indicated. (.); LEGIONELLA ANTIGEN URINE Negative (Negative); ORGANISM ID Not indicated. (.); SPECIMEN SOURCE Urine (.); URINE STREP PNEUMONIAE ANTIGEN Negative (Negative)
== END 2020-04-07 14:47 | disposition home or self-care (01) | DRG 194 ==
LOC: M ED 18:38 → M ED INP 04-06 00:30 → EEVIPCON 04-06 00:30 → M MSPAV 04-06 02:30
PROVIDERS: ADMIT Internal Medicine; ATTEND Internal Medicine Nephrology
DX: J18.9 Pneumonia, unspecified organism (principal); J44.1 Chronic obstructive pulmonary disease with (acute) exacerbation; R04.2 Hemoptysis; E78.5 Hyperlipidemia, unspecified; E03.9 Hypothyroidism, unspecified; Z85.51 Personal history of malignant neoplasm of bladder; Z85.038 Personal history of other malignant neoplasm of large intestine; Z79.82 Long term (current) use of aspirin; Z79.899 Other long term (current) drug therapy; I10 Essential (primary) hypertension

== ENCOUNTER 2020-06-10 16:55 | Observation (INO) | payer MEDICARE, OTHER ==
[~2020-06-10] VITALS: Ht 175.3 cm; Wt 66.9 kg
[~2020-06-10 16:55] MED LIST changes: +ASPI81CH33 PO; +DOXY-350 PO; +LEVO750T13 PO; +ROSU40TA4 PO; +SPIR12.9 INH; +SYMB16INH INH; +VENTAER INH
[2020-06-10] MEDS ORDERED: NS 500 ML IV ONE (17:30)
--- NOTE | 2020-06-10 17:34 | REPVR ---
PROCEDURE INFORMATION: Exam: CT Head Without Contrast Exam date and time: 06/10/2020 5:01 PM Age: 74 years old Clinical indication: Injury or trauma; Fall; Blunt trauma (contusions or hematomas); Additional info: Fell on thinners TECHNIQUE: Imaging protocol: Computed tomography of the head without contrast. Radiation optimization: All CT scans at this facility use at least one of these dose optimization techniques: automated exposure control; mA and/or kV adjustment per patient size (includes targeted exams where dose is matched to clinical indication); or iterative reconstruction. COMPARISON: No relevant prior studies available. FINDINGS: Brain: Banuelos-white differentiation appears preserved. Cerebral ventricles: Normal-appearing ventricles. Bones/joints: There is no evidence of fracture. Paranasal sinuses: Clear paranasal sinuses. Mastoid air cells: Clear mastoid air cells. Orbital cavity: Symmetric orbits. Vasculature: There is calcification of the carotid siphon bilaterally. Soft tissues: There is focal scalp swelling and a scalp hematoma right vertex. IMPRESSION: 1. No evidence of fracture. 2. No evidence of intracranial bleed. 3. Right scalp hematoma . Electronically signed by: Óscar Hanna On 06/10/2020 17:34:04 PM
[2020-06-10 17:40] LABS: BASO % 0.3 % (0.0-1.0); EOS # 0.2 10^3/uL (0.0-0.5); EOS % 2.1 % (0.0-3.0); HEMATOCRIT 45.2 % (42.0-52.0); LYMPH # 3.5 10^3/uL (1.5-5.0); LYMPH % 34.5 % (24.0-44.0); MONO # 0.8 10^3/uL (0.0-0.8); NEUTROPHILS # 5.5 10^3/uL (1.5-8.5); NEUTROPHILS % 54.4 % (36.0-66.0); PLATELET COUNT, AUTOMATED 299 10^3/uL (150-450); RED BLOOD COUNT 4.66 10^6/uL (4.30-6.10)
[2020-06-10] MEDS ORDERED: ISOVUE-370 76% 100ML VIAL As Ordered ONE (17:43)
--- NOTE | 2020-06-10 18:01 | REPVR ---
PROCEDURE INFORMATION: Exam: CT Cervical Spine Without Contrast Exam date and time: 06/10/2020 5:01 PM Age: 74 years old Clinical indication: Injury or trauma; Fall; Blunt trauma; Additional info: Fell on thinners TECHNIQUE: Imaging protocol: Computed tomography images of the cervical spine without contrast. Radiation optimization: All CT scans at this facility use at least one of these dose optimization techniques: automated exposure control; mA and/or kV adjustment per patient size (includes targeted exams where dose is matched to clinical indication); or iterative reconstruction. COMPARISON: No relevant prior studies available. FINDINGS: Vertebrae: There is no evidence of fracture. The dens appears intact and the lateral masses of C1 appear symmetric. There is severe narrowing of the C3-C4, C4-C5, and C5-C6 disc spaces with [id number] and severe sclerosis of the margins with osteophyte formation. The facet joints are in alignment with severe facet hypertrophy and osteophyte formation greater on the right. C3-C4: There is moderate posterior osteophyte formation causing moderate impression on the thecal sac. There is also 5 mm of retrolisthesis of C3 on C4. This produces moderate bilateral C4 neural foraminal narrowing. C4-C5: There is moderate posterior osteophyte formation causing moderate impression on the thecal sac and moderate central spinal canal stenosis. C5-C6: There is severe C5 neural foraminal narrowing. Soft tissues: There is no evidence of soft tissue swelling. Lungs: There is very prominent stranding density left apical portion of the lung with pleural thickening and more patchy density the contiguous with pleura. This has progressed since March and I would recommend a CT scan of the chest with contrast further evaluation. IMPRESSION: Very severe degenerative and arthritic change. No evidence of fracture. There is severe stranding density left apical portion of the lung with pleural thickening and more patchy areas of density at the periphery of the upper left lung. This has progressed since March CT and I would recommend obtaining a CT scan of the chest with IV contrast for further evaluation. I would also recommend obtaining older CT examinations for comparison. Electronically signed by: Óscar Hanna On 06/10/2020 18:00:55 PM
--- NOTE | 2020-06-10 18:16 | REPVR ---
PROCEDURE INFORMATION: Exam: CT Chest With Contrast Exam date and time: 06/10/2020 5:27 PM Age: 74 years old Clinical indication: Injury or trauma; Fall; Blunt trauma (contusions or hematomas); Additional info: Fall left flank pain TECHNIQUE: Imaging protocol: Computed tomography of the chest with intravenous contrast. Radiation optimization: All CT scans at this facility use at least one of these dose optimization techniques: automated exposure control; mA and/or kV adjustment per patient size (includes targeted exams where dose is matched to clinical indication); or iterative reconstruction. Contrast material: ISOVUE 370; Contrast volume: 100 ml; Contrast route: INTRAVENOUS (IV); COMPARISON: CT Chest with contrast 04/05/2020 10:04 PM FINDINGS: Lungs: There are very large bulla throughout the right upper lobe of the lung and all consistent with severe bullous emphysema. There has been marked decrease in the amount infiltrate in the left upper lung since 04/05/2020. However the presumed left upper lobe scarring is not present in 2019. Pleural space: There is no evidence of pneumothorax or pleural effusion. There is severe residual left apical stranding density and pleural thickening. I would recommend a follow-up CT scan of the chest in 6 months to document stability of this. Heart: The heart is normal in size and there is no pericardial effusion. Pulmonary arteries: There is opacification of the pulmonary arteries with no evidence of pulmonary embolus. Aorta: There is opacification of the aorta which appears intact. Lymph nodes: Unremarkable. No enlarged lymph nodes. Bones/joints: There is a fracture of the posterior aspect of the right 6th and 7th ribs. Soft tissues: Unremarkable. IMPRESSION: 1. Fracture of the posterior aspect of the right 6th and 7th ribs. 2. Severe stranding density left apical portion of the lung possibly scarring. Recommend follow-up CT scan in no longer than 6 months for re-evaluation and to document stability. Electronically signed by: Óscar Hanna On 06/10/2020 18:16:24 PM
[2020-06-10 18:19] LABS: ALBUMIN 3.9 GM/DL (3.2-5.2); ALT/SGPT 33 U/L (12-78); AMYLASE 91 U/L (25-115); BILIRUBIN,DIRECT < 0.1 MG/DL (0.0-0.2); BILIRUBIN,TOTAL 0.3 MG/DL (0.2-1.0); BLOOD UREA NITROGEN 21 MG/DL (7-18); CALCIUM LEVEL 9.3 MG/DL (8.8-10.2); CARBON DIOXIDE LEVEL 30 MEQ/L (21-32); CHLORIDE LEVEL 103 MEQ/L (98-107); CREATININE FOR GFR 1.24 MG/DL (0.70-1.30); GLOMERULAR FILTRATION RATE > 60.0 (>42); GLUCOSE, FASTING 102 MG/DL (70-100); LIPASE 70 U/L (73-393); POTASSIUM SERUM 4.7 MEQ/L (3.5-5.1); SODIUM LEVEL 138 MEQ/L (136-145); TOTAL PROTEIN 7.2 GM/DL (6.4-8.2)
[2020-06-10 18:38] LABS: INR 0.93; PROTHROMBIN TIME 12.7 SECONDS (12.5-14.3)
--- NOTE | 2020-06-10 18:38 | REP ---
INDICATION: Trauma. COMPARISON: CT chest just prior to this x-ray, CT and chest x-ray 04/05/2020 TECHNIQUE: AP portable, two views to encompass the entirety of the chest FINDINGS: Improvement in the airspace opacities in the left upper lobe suspected. Some of this may be due to the difference between this portable AP and previous PA chest technique. There is still significant presumed chronic disease in the left upper lobe and a spiculated density that could be scar or small nodule overlying the posterior left 4th rib in the mid clavicular line underlying COPD with emphysematous changes and fibrotic changes in both the mid and lower lung zones. No definite effusion or other areas of consolidation. The heart size is not enlarged. The aorta is calcified the arch somewhat tortuous but without interval change. Airway intact. No widening of the mediastinum. The rib fractures of the right posterior 6th and 7th ribs on CT are not readily visible on this portable chest on either view. IMPRESSION: Advanced COPD with bullous emphysematous changes and chronic pleuroparenchymal fibrosis with suggested improvement in some of the airspace opacity or infiltrate in that left upper lobe at the apex and peripherally. A neoplasm cannot be excluded on this radiograph and I concur with the CT recommendation for follow-up at appropriate intervals. No effusion, basilar infiltrates, cardiomegaly or edema. <Electronically signed by Macho Eugene > 06/10/20 [id number]
[2020-06-10 18:39] LABS: PARTIAL THROMBOPLASTIN TIME 30.1 SECONDS (24.2-38.5)
--- NOTE | 2020-06-10 18:52 | REPVR ---
PROCEDURE INFORMATION: Exam: CT Abdomen And Pelvis With Contrast Exam date and time: 06/10/2020 5:27 PM Age: 74 years old Clinical indication: Injury or trauma; Fall; Blunt; Additional info: Fall left flank pain TECHNIQUE: Imaging protocol: Computed tomography of the abdomen and pelvis with intravenous contrast. Radiation optimization: All CT scans at this facility use at least one of these dose optimization techniques: automated exposure control; mA and/or kV adjustment per patient size (includes targeted exams where dose is matched to clinical indication); or iterative reconstruction. Contrast material: ISOVUE 370; Contrast volume: 100 ml; Contrast route: INTRAVENOUS (IV); COMPARISON: CT ABD PELVIS W/O FOL BY WIT 08/05/2015 12:35 PM FINDINGS: Liver: There are 2 enhancing areas in the liver probably atypical hemangiomas Gallbladder and bile ducts: Normal gallbladder. Normal common bile duct. Pancreas: Normal pancreas. Spleen: Normal spleen. Adrenal glands: Normal adrenal glands. Kidneys and ureters: There is opacification of the kidneys. Stomach and bowel: The cecum is in the right pelvis. There are multiple surgical clips in the sigmoid colon. Normal appearing small bowel. Appendix: Normal appearing appendix. Intraperitoneal space: There is no evidence of pneumoperitoneum. There is no evidence of free fluid in the abdomen or pelvis. Vasculature: There is opacification of the aorta which appears intact. There is calcification along the margins of the aorta consistent with atherosclerotic change. 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 There is calcification and narrowing at the origin of the renal arteries. Lymph nodes: Unremarkable. No enlarged lymph nodes. Urinary bladder: Normal urinary bladder. Reproductive: Normal-sized prostate. The right testicle is within the right inguinal canal which may be a chance occurrence and recommend clinical correlation. Right testicle is high in position but not within the inguinal canal in 2015. Bones/joints: There is a fracture of the right spinous process of L4. There is severe narrowing of the L2-L3, and L3-L4 disc spaces with sclerosis of the endplates and cystic degenerative change. There is moderate posterior disc osteophyte complex impressing on the thecal sac. L3-L4: There is a large posterior osteophyte impressing on the thecal sac and there is also severe bilateral L3 neural foraminal narrowing secondary to osteophyte formation. L4-L5: There is a large posterior disc protrusion causing moderate to severe impression on the thecal sac. L5-S1: there is a large posterior disc protrusion causing moderate to severe impression on the thecal sac and severe bilateral L5 neural foraminal narrowing. Soft tissues: There is a large subcutaneous hematoma right side of the back from the fractured right L4 transverse process to the right iliac crest. There is a small fragment of bone posterior aspect of the iliac crest consistent with cortical chip fracture. Focal hematoma surrounds this and measures 6 cm x 6 cm by 3.6 cm in thickness. There is severe soft tissue swelling in the subcutaneous layer of the the right iliac bone and extending to the right gluteus muscles. There is a small chip type fracture from the posterior aspect of the iliac bone as well with a prominent hematoma at this location/posterior to the right iliac bone IMPRESSION: 1. Fracture of the right transverse process L4. 2. Large 6 cm hematoma at the right iliac crest with associated prominent chip fracture. There is also severe soft tissue swelling at this location. 3. Right testicle high in the right inguinal canal and recommend clinical correlation. Electronically signed by: Óscar Hanna On 06/10/2020 18:52:53 PM
[2020-06-10] MEDS ORDERED: KETOROLAC 30 MG/ML 1ML VIAL IV PRN (19:15)
[2020-06-10] MEDS ORDERED: IPRATROPIUM 0.5MG/ALBUTEROL 2.5MG INH SOL UD 3ML (DUONEB) NEB PRN (19:15)
[2020-06-10] MEDS ORDERED: NORCO, ANEXSIA 5/325MG TABLET (HYDROcodone/ACETAMINOPHEN) PO PRN (19:15)
[2020-06-10] MEDS ORDERED: ONDANSETRON 4MG/2ML VIAL IV PRN (19:15)
[2020-06-10] MEDS ORDERED: MORPHINE 2 MG/ML 1ML VIAL (J2270) IV PRN ×2 (19:15)
--- NOTE | 2020-06-10 19:33 | HPEPDOC ---
[facility] Medical History & Physical Date of Admission Jun 10, 2020 Date of Service: Jun 10, 2020 Other Provider Issa Parsons MD Attending Physician: DIONY PATE MD History and Physical TIME OF SERVICE: 845pm CHIEF COMPLAINT: fall REASON FOR CONSULT: medical co-management HISTORY OF PRESENT ILLNESS: While pulling a generator off his truck this 74 yr old M had a fell on to the concrete, landed on the right side of his body and then hit his head. He denied loosing consciousness. As a result of the fall he developed right flank pain and a headache. Currently the flank pain is less severe than when he arrived and the headache has resolved. 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 HOME MEDICATIONS: Please see below. PHYSICAL EXAMINATION: Vital Signs Date Time Temp Pulse Resp B/P (MAP) Pulse Ox O2 Delivery O2 Flow Rate FiO2 06/10/20 16:55 96.2 78 20 174/81 (112) 94 Room Air 06/10/20 22:29 1.0 GEN: slim build/ well developed/ NAD INTEGUMENT: not flushed/ not jaundice HEENT: lips acyanotic /mucus membranes moist and pink CVS: RRR/NMRG/ radial pulses intact / no lower extremity edema LUNGS: able to speak full sentences without stopping to take a breath / no coughing / lungs are clear to auscultation bilaterally on room air ABDOMEN: Contour (flat) / soft & not tender with palpation MSK/EXTREMITIES: NCAT / range of motion intact in all 4 extremities / right upper flank/ rotoformer backtender w palpation NEURO: CN 2-12 are grossly intact / speech is not dysarthric PSYCH: alert and oriented to person place and time/ able to understand and follow all commands LABORATORY DATA: 06/10/20 17:29: Immature Granulocyte % (Auto) 0.7, Neutrophils (%) (Auto) 54.4, Lymphocytes (%) (Auto) 34.5, Monocytes (%) (Auto) 8.0H, Eosinophils (%) (Auto) 2.1, Basophils (%) (Auto) 0.3, Neutrophils # (Auto) 5.5, Lymphocytes # (Auto) 3.5, Monocytes # (Auto) 0.8, Eosinophils # (Auto) 0.2, Basophils # (Auto) 0.0, Nucleated Red Blood Cells % (auto) 0.0, Prothrombin Time 12.7, Prothromb Time International Ratio 0.93, Activated Partial Thromboplast Time 30.1, Anion Gap 5L, Glomerular Filtration Rate > 60.0, Calcium Level 9.3, Total Bilirubin 0.3, Direct Bilirubin < 0.1, Aspartate Amino Transf (AST/SGOT) 36, Alanine Aminotransferase (ALT/SGPT) 33, Alkaline Phosphatase 142H, Total Protein 7.2, Albumin 3.9, Albumin/Globulin Ratio 1.2, Amylase Level 91, Lipase 70L 06/10/20 17:30: POC Glucose (Misc Panel) 107H, POC Sodium (Misc Panel) 137, POC Potassium (Misc Panel) 4.6, POC Chloride (Misc Panel) 100, POC Total CO2 (Misc Panel) 29.0H, POC Blood Urea Nitrogen (Misc Panel 22, POC Ionized Calcium (Misc Panel) 4.9, POC Creatinine (Misc Panel) 1.2, POC Hematocrit (Misc Panel) 45.0 06/10/20 18:22: POC Troponin I (Misc) 0.00 IMAGING: CT head "No evidence of fracture. 2. No evidence of intracranial bleed. 3. Right scalp hematoma." CT cervical spine "Very severe degenerative and arthritic change. No evidence of fracture. There is severe stranding density left apical portion of the lung with pleural thickening and more patchy areas of density at the periphery of the upper left lung. This has progressed since March CT and I would recommend obtaining a CT scan of the chest with IV contrast for further evaluation. I would also recommend obtaining older CT examinations for comparison." CT chest "1. Fracture of the posterior aspect of the right 6th and 7th ribs. 2. Severe stranding density left apical portion of the lung possibly scarring. Recommend follow-up CT scan in no longer than 6 months for re-evaluation and to document stability." CT abd/pelvis "1. Fracture of the right transverse process L4. 2. Large 6 cm hematoma at the right iliac crest with associated prominent chip fracture. There is also severe soft tissue swelling at this location. 3. Right testicle high in the right inguinal canal and recommend clinical correlation." Chest xray "Advanced COPD with bullous emphysematous changes and chronic pleuroparenchymal fibrosis with suggested improvement in some of the airspace opacity or infiltra te in that left upper lobe at the apex and peripherally. A neoplasm cannot be excluded on this radiograph and I concur with the CT ecommendation for follow-up at appropriate intervals. No effusion, basilar infiltrates, cardiomegaly or edema." MICROBIOLOGY: Please see below. ASSESSMENT: is a 74 yr old former smoker w COPD, NIDDM, carotid artery disease and HTN who presented for evaluation after having a mechanical fall resulting in fractures of the right 6th & 7th ribs, fracture of the right transverse process of L4, and 6cm hematoma in the right iliac crest. He was admitted for pain management and to monitor the hematoma by the surgical service; we were consulted for medical-comanagement. PLAN: 1. Fracture of right 6th & 7th ribs Plan: pain meds per primary team/ added incentive spirometer 2. Fracture of the right transverse process of L4 Plan: pain meds per primary team 3. 6cm right iliac crest hematoma Plan: hold ASA / f/u serial Hg i 4. Carotid artery disease Plan: c/w statin / hold ASA tonight / c/w Plavix bc of hx of restenosis of carotid stent/ request records from [place] to confirm types of procedures done on carotid artery and how recently there were performed 5. Severe stranding density left apical portion of the lung Plan: f/u w PCP for repeat CT in 6 months 6. COPD Denied dyspnea Plan: Symbicort & Spiriva 7. Chronic HTN Plan: amlodipine 8. NIDM1 Plan: CLD per primary team / f/u accuchecks Q6H while on CLD & A1C / hypoglycemia protocol / sliding scale insulin / hold oral anti-glycemics 9. Hypothyroidism Plan: levothyroxine 10. Dyslipidemia Plan: statin DVT Px per primary team Dispo: per primary team Home Medications Scheduled Amlodipine Besylate (Amlodipine Besylate) 10 Mg Tablet, 5 MG PO DAILY Aspirin (Aspirin) 81 Mg Tab.chew, 81 MG PO DAILY Atenolol (Atenolol) 50 Mg Tablet, 50 MG PO DAILY Budesonide/Formoterol (Symbicort 160-4.5 Mcg Inhaler) 6 Gm Hfa.aer.ad, 2 PUFF INH BID Cephalexin (Cephalexin) 500 Mg Capsule, 500 MG PO BID Clopidogrel Bisulfate (Clopidogrel) 75 Mg Tablet, 75 MG PO QHS Levothyroxine Sodium (Synthroid) 88 Mcg Tablet, 88 MCG PO QAM PATIENT TAKES ONE HOUR BEFORE OTHER MEDICATIONS. Magnesium Oxide (Magnesium Oxide) 400 Mg Tablet, 400 MG PO DAILY Metformin HCl (Metformin HCl) 500 Mg Tablet, 250 MG PO BID Multivitamin with Minerals (Multiple Vitamin) 1 Each Tablet, 1 TAB PO DAILY Riboflavin (Vitamin B2) (Riboflavin) 400 Mg Tablet, 400 MG PO DAILY @ NOON Rosuvastatin Calcium (Rosuvastatin Calcium) 40 Mg Tablet, 40 MG PO QPM Tiotropium [place] (Spiriva Respimat) 4 Gm Mist.inhal, 2 INHALATION INH DAILY Scheduled PRN Albuterol Sulfate (Ventolin Hfa) 18 Gm Hfa.aer.ad, 2 PUFFS INH QID PRN for SHORTNESS OF BREATH Fluticasone Propionate (Flonase Allergy Relief) 9.9 Ml [place].susp, 1 SPRAY NARES DAILY PRN for CONGESTION Allergies Coded Allergies: No Known Allergies (Unverified , 02/28/19) A-FIB/CHADSVASC A-FIB History Current/History of A-Fib/PAF?: No Current PO Anticoag Therapy: No DIONY PATE MD Jun 10, 2020 19:33
--- NOTE | 2020-06-10 19:51 | ECGEPIP ---
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
[2020-06-10] MEDS: SYMBICORT 160/4.5MCG INHALER 6GM INH SCH (20:00)
[2020-06-10] MEDS ORDERED: CEPH500C PO (20:44)
[2020-06-10] MEDS ORDERED: RIBO400T PO (20:44)
[2020-06-10] MEDS ORDERED: MAGN400T2 PO (20:44)
[2020-06-10] MEDS ORDERED: ROSUVASTATIN 10 MG TAB (CRESTOR) PO SCH (21:00)
[2020-06-10] MEDS ORDERED: CLOPIDOGREL 75 MG TAB PO SCH (21:00)
[2020-06-10] MEDS ORDERED: HumaLOG INSULIN (NovoLOG) PER UNIT SC SCH (21:00)
[2020-06-10] MEDS: IPRATROPIUM 0.5MG/ALBUTEROL 2.5MG INH SOL UD 3ML (DUONEB) NEB SCH (22:16)
[2020-06-10 22:29] VITALS: BP 149/82
[2020-06-10] MEDS: NS 1,000 ML IV SCH (22:45)
[2020-06-10] MEDS: NORCO, ANEXSIA 5/325MG TABLET (HYDROcodone/ACETAMINOPHEN) PO PRN (22:46)
[2020-06-11] MEDS ORDERED: GLUCAGON INJ 1MG VIAL SC PRN (00:45)
[2020-06-11] MEDS ORDERED: GLUCOSE 4GM CHEW TABLET PO PRN (00:45)
[2020-06-11] MEDS ORDERED: FLUTICASONE PROP 0.05% NASAL SPRAY 16 GM (FLONASE) NARES PRN (00:45)
[2020-06-11] MEDS ORDERED: ALBUTEROL 90 MCG/ACT 8GM HFA INHALER INH PRN (00:45)
[2020-06-11] MEDS ORDERED: DEXTROSE 50% 50 ML SYRINGE IV PRN (00:45)
[2020-06-11] MEDS: CEPHALEXIN 500 MG CAP PO SCH ×2 (00:55→09:22)
[2020-06-11 02:00] VITALS: BP 129/74
[2020-06-11] MEDS: IPRATROPIUM 0.5MG/ALBUTEROL 2.5MG INH SOL UD 3ML (DUONEB) NEB SCH ×2 (02:00→07:52)
[2020-06-11] MEDS: HumaLOG INSULIN (NovoLOG) PER UNIT SC SCH ×3 (05:42→12:00)
[2020-06-11] MEDS ORDERED: LEVOTHYROXINE 88MCG TABLET (0.088 MG) PO SCH (06:00)
[2020-06-11] MEDS: NS 1,000 ML IV SCH (06:12)
[2020-06-11 06:50] LABS: HEMOGLOBIN 13.7 g/dl (13.5-17.5); MEAN CORPUSCULAR HEMOGLOBIN 31.2 pg (27.0-33.0); MEAN CORPUSCULAR HGB CONC 31.9 g/dl (32.0-36.5); MEAN CORPUSCULAR VOLUME 97.9 fl (80.0-96.0); PLATELET COUNT, AUTOMATED 258 10^3/uL (150-450); RED BLOOD COUNT 4.39 10^6/uL (4.30-6.10); WHITE BLOOD COUNT 8.1 10^3/uL (4.0-10.0)
[2020-06-11 07:10] LABS: BLOOD UREA NITROGEN 15 MG/DL (7-18); CALCIUM LEVEL 8.9 MG/DL (8.8-10.2); CARBON DIOXIDE LEVEL 29 MEQ/L (21-32); CHLORIDE LEVEL 106 MEQ/L (98-107); CREATININE FOR GFR 1.07 MG/DL (0.70-1.30); GLOMERULAR FILTRATION RATE > 60.0 (>42); GLUCOSE, FASTING 92 MG/DL (70-100); POTASSIUM SERUM 4.1 MEQ/L (3.5-5.1); SODIUM LEVEL 140 MEQ/L (136-145)
[2020-06-11 07:13] LABS: HEMOGLOBIN A1c 5.5 %
[2020-06-11] MEDS ORDERED: HumaLOG INSULIN (NovoLOG) PER UNIT SC SCH (07:30)
[2020-06-11] MEDS: SYMBICORT 160/4.5MCG INHALER 6GM INH SCH (07:52)
[2020-06-11] MEDS ORDERED: TIOTROPIUM INHALER/CAPSULE (SPIRIVA) INH SCH (08:00)
--- NOTE | 2020-06-11 08:24 | REP ---
INDICATION: RIB FRACTURE. COMPARISON: AP portable chest and CT 06/10/2020, 04/05/2020 TECHNIQUE: Two views FINDINGS: Lung augustin again are hyperinflated with advanced bullous emphysematous changes particularly in the right upper lung zone with chronic fibrotic changes or scarring in the left upper lobe and volume loss as before. There is significant improvement in the infiltrates in the left upper lung zone compared to the 04/05/2020 examinations. However none of this volume loss and extensive parenchymal scarring or pleural thickening/density is visible on a CT from 02/28/2019. Basilar fibrosis also noted and a bolus changes throughout both lungs heart is not enlarged no pulmonary edema or definite effusion. The aorta is tortuous unchanged. Airway deviated towards the left with hyperinflation of the right upper lung zone and volume loss in the left upper lobe. Seventh rib fracture is seen displaced and could not be readily discerned on the portable chest yesterday was seen on CT. There is no pneumothorax. Questionable disruption of the 6 rib cortex just above this is also seen on radiograph today and yesterday CT, not visible on the portable exam. There is no free air under the diaphragm. IMPRESSION: Mildly displaced right posterior 7th rib fracture and nondisplaced 6th rib fracture now visible on plain film radiograph. Left upper lobe chronic fibrotic changes and volume loss. The questionable spiculated density on yesterday's portable chest poorly visualized on today's exam. It may represent an area on CT of linear scarring seen en face radiographically. It should be noted that CT in February 2019 did not show any of this pleural thickening and fibrotic change. Neoplasm cannot be entirely excluded. Advanced bullous emphysematous changes throughout. The heart and mediastinal contours unchanged. <Electronically signed by Macho Eugene > 06/11/20 [id number]
[2020-06-11] MEDS ORDERED: amLODIPine 10 MG TAB PO SCH (09:00)
[2020-06-11] MEDS ORDERED: PREVNAR 13 VACCINE SYRINGE IM ONE (09:00)
[2020-06-11] MEDS ORDERED: atenoloL 50 MG TAB PO SCH (09:00)
[2020-06-11] MEDS ORDERED: PANTOPRAZOLE 40MG TAB (PROTONIX) PO SCH (09:00)
[2020-06-11] MEDS ORDERED: MAGNESIUM OXIDE 400 MG TAB (MAG-OX) PO SCH (09:00)
[2020-06-11 09:26] VITALS: BP 135/60
[2020-06-11 10:00] VITALS: BP 108/56
[2020-06-11] MEDS ORDERED: HYDR-3715 PO (11:58)
[2020-06-11 14:00] VITALS: BP 124/69
[2020-06-11] MEDS: NORCO, ANEXSIA 5/325MG TABLET (HYDROcodone/ACETAMINOPHEN) PO PRN (15:34)
== END 2020-06-11 16:40 | disposition home or self-care (01) ==
LOC: M ED 16:55 → M ED INP 19:34 → ENRESERV 19:50 → M MSPAV 22:28
PROVIDERS: ADMIT Surgery; ATTEND Surgery
DX: S22.41XA Multiple fractures of ribs, right side, initial encounter for closed fracture (principal); S32.049A Unspecified fracture of fourth lumbar vertebra, initial encounter for closed fracture; S70.01XA Contusion of right hip, initial encounter; W19.XXXA Unspecified fall, initial encounter; Y92.014 Private driveway to single-family (private) house as the place of occurrence of the external cause; Y93.9 Activity, unspecified; Y99.9 Unspecified external cause status; E11.9 Type 2 diabetes mellitus without complications; I10 Essential (primary) hypertension; I25.10 Atherosclerotic heart disease of native coronary artery without angina pectoris; E78.5 Hyperlipidemia, unspecified; E03.9 Hypothyroidism, unspecified; Z98.61 Coronary angioplasty status; J43.9 Emphysema, unspecified; Z85.038 Personal history of other malignant neoplasm of large intestine; Z85.51 Personal history of malignant neoplasm of bladder; Z79.02 Long term (current) use of antithrombotics/antiplatelets; Z79.82 Long term (current) use of aspirin; Z79.84 Long term (current) use of oral hypoglycemic drugs; Z79.899 Other long term (current) drug therapy; Z87.891 Personal history of nicotine dependence
CPT/HCPCS: 36415; 70450; 71045; 71046; 71260; 72125; 74177; 80047; 80048; 80076; 81001; 82150; 83036; 83605; 83690; 84484; 85018; 85025; 85027; 85610; 85730; 86850; 86900; 86901; 90670; 93005; 93041; 94640; 94760; 96361; 96374; 97161; 99285; G0009; G0378; Q9967

== ENCOUNTER 2020-08-29 23:41 | Inpatient (IN) | payer OTHER, MEDICARE ==
[~2020-08-29] VITALS: Ht 175.3 cm; Wt 77.3 kg
[~2020-08-29 23:41] MED LIST changes: +CEPH500C PO; +HYDR-3715 PO; +MAGN400T2 PO; +RIBO400T PO
--- OUTSIDE RECORDS SUMMARY | 2020-08-29 23:47 | CCD ---
Author Author [facility] Organization [facility] Address Unknown Phone Unavailable Support Name Relationship Address Phone TAMAR TREVINO Next Of Kin [address], [place] [id number] RE Next Of Kin Unknown Unavailable VIKY MCCONNELL Next Of Kin Unknown Jayesh, Viky ECON [address] [place] [address] Re-disclosure Warning The records that you are about to access may contain information from federally-assisted alcohol or drug abuse programs. If such information is present, then the following federally mandated warning applies: This information has been disclosed to you from records protected by federal confidentiality rules (42 CFR part 2). The federal rules prohibit you from making any further disclosure of this information unless further disclosure is expressly permitted by the written consent of the person to whom it pertains or as otherwise permitted by 42 CFR part 2. A general authorization for the release of medical or other information is NOT sufficient for this purpose. The Federal rules restrict any use of the information to criminally investigate or prosecute any alcohol or drug abuse patient.The records that you are about to access may contain highly sensitive health information, the redisclosure of which is protected by Article 27-F of the [facility] Public Health law. If you continue you may have access to information: Regarding HIV / AIDS; Provided by facilities licensed or operated by the [facility] Office of Mental Health; or Provided by the [facility] Office for People With Developmental Disabilities. If such information is present, then the following [facility] mandated warning applies: This information has been disclosed to you from confidential records which are protected by state law. State law prohibits you from making any further disclosure of this information without the specific written consent of the person to whom it pertains, or as otherwise permitted by law. Any unauthorized further disclosure in violation of state law may result in a fine or fci sentence or both. A general authorization for the release of medical or other information is NOT sufficient authorization for further disc losure. Allergies and Adverse Reactions Type Description Substance Reaction Status Data Source(s ) Tape Tape Tape Rash Active eCW1 ([facility]) Family History Family Member Name Family Member Gender Family Member Status Date o f Status Description Data Source(s) Unknown Female Problem MEDENT ([facility]) Encounters Encounter Providers Location Date Indications Data Source(s ) [facility] [address] [place] [id number] 09/22/2019 12:00:00 AM EST eCW1 ([facility]) Immunizations Vaccine Date Status Description Data Source(s) INFLUENZA VIRUS VACCINE QUADRIVAL [id number](6 MOS AND UP)/PF 05/22/2020 12:00:00 AM EDT completed [facility] Medications Medication Brand Name Start Date Product Form Dose Route Admi nistrative Instructions Pharmacy Instructions Status Indications Reaction Description Data Source(s) 750 mg 04/07/2020 12:00:00 AM EDT tablet 5 TAKE ONE TABLET BY MOUTH EVERY DAY TAKE ONE TABLET BY MOUTH EVERY DAY SOLD: 04/08/2020 [facility] 20 mg 04/07/2020 12:00:00 AM EDT tablet 6 TAKE TWO TABLETS BY MOUTH EVERY DAY FOR 3 DAYS TAKE TWO TABLETS BY MOUTH EVERY DAY FOR 3 DAYS SOLD: 020 [facility] Insurance Providers Payer name Policy type / Coverage type Policy ID Covered libertarian ID Covered libertarian's relationship to pimentel Policy Pimentel Plan Information [place] [id number] SP [id number] MEDICARE A [id number] Self [id number] A 'S ADMINISTRATION [id number] SP [id number] MEDICARE [id number] SP [id number] OPTUM VA O [id number] S [id number] MEDICARE [id number] SP [id number] A MEDICARE [id number] SP [id number] [facility] [id number] SP [id number] GHI ([employer] - [place] Supplemental Policy [id number] CAT: [id number] Self [id number] CAT: 790 Medicare Part B [facility] Medicare Primary 0 Self 0 GHI ([employer] [place] Supplemental Policy [id number] CAT: [id number] Self PP01 CAT: 790 Medicare Part B of [facility] Medicare Primary 0 Self 0 GHI ([employer] [place] Supplemental Policy [id number] CAT: 790 Self PP01 CAT: 790 Medicare Part B of [place] - Western Medicare Primary 0 Self 0 MEDICARE PART A -O/P [id number] 18 [id number] GHI [facility]-O/P [id number] 18 [id number] GHI ([employer] - [place] Supplemental Policy PP01 CAT: 790 Self PP01 CAT: 790 Medicare Part B of [place] - Western Medicare Primary 0 Self 0 GHI ([employer] - [place] Supplemental Policy PP01 CAT: 790 Self PP01 CAT: 790 Medicare Part B of [place] - Western Medicare Primary 0 Self 0 GHI ([employer] - [place] Supplemental Policy PP01 CAT: 790 Self PP01 CAT: 790 Medicare Part B of [place] - Western Medicare Primary 0 Self 0 [facility] [id number] SP [id number] Ghi/[employer] HLTH (pr) Medigap Part B Self Medicare [facility] Medicare Primary Self [facility] [id number] SP [id number] MEDICARE -O/P [id number] 18 [id number] SELF PAY UNAVAILABLE SP UNAVAILA BLE [facility] [id number] SP [id number] [employer] [id number] SP [id number] Problems, Conditions, and Diagnoses Code Display Name Description Problem Type Effective Dates Data Source(s) C67.9 Malignant tumor of urinary bladder Malig nant neoplasm of bladder, unspecified Problem 09/22/2019 12:00:00 AM EST eCW1 ([facility]) Z85.51 Personal history of primary malignant ne oplasm of urinary bladder Personal history of malignant neoplasm of bladder Problem 09/09 12:00:00 AM EST eCW1 ([facility]) Surgeries/Procedures Procedure Description Date Indications Data Source(s) Colonoscopy W/ Poly 01/11/2020 12:00:00 AM EDT MEDENT ([facility], ) CYSTOSCOPY 09/22/2019 12:00:00 AM EST e CW1 ([facility]) Results ID Date Data Source [id number] 04/05/2020 12:00:00 AM EDT [facility] Name Value Range Interpretation Code Description Data Clau rce(s) Supporting Document(s) SARS coronavirus 2 RNA [Presence] in Res piratory specimen by SIGIFREDO with probe detection [facility] This lab was ordered by [facility] and reported by [facility]. ID Date Data Source [id number] 03/30/2020 12:00:00 AM EDT [facility] Name Value Range Interpretation Code Description Data Clau rce(s) Supporting Document(s) SARS coronavirus 2 RNA [Presence] in Res piratory specimen by SIGIFREDO with probe detection [facility] This lab was ordered by [facility] and reported by [facility]. ID Date Data Source [id number] 01/11/2020 08:38:00 AM EDT MEDENT ([facility], ) Name Value Range Interpretation Code Description Data Clau rce(s) Supporting Document(s) [facility] pathology study [facility] FINAL DIAGNOSIS Colon, polyps, polypectomy: Adenomatous polyp/tubular adenoma fragments. Rare fragments of hyperplastic polyp are also noted. 01/12/2020 - 1152 CLINICAL DIAGNOSIS Personal history cancerous colon polyp 01/11/2020 - 1533 GROSS DIAGNOSIS Received in formalin labeled "hot snare polyps colon" is a 1 x 1 x 0.4 cm aggregate of fecal material and polyps fragments. All in one. - 01/11/2020 - 1533 Signed Viv Barrera MD 01/12/2020 1345 ID Date Data Source [id number] 01/08/2020 11:20:00 AM EDT [facility] Name Value Range Interpretation Code Description Data Clau rce(s) Supporting Document(s) SARS CORONAVIRUS 2 RNA [facility] This lab was ordered by [facility] and reported by [facility]. 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 ASSISTANT CYTOLOGY REQ FOR SERVI 09/22/2019 12:00:00 AM EST eC W1 ([facility]) Name Value Range Interpretation Code Description Data Clau rce(s) Supporting Document(s) URINE eCW1 ([facility]) Procedure Vital Signs ID Date Data Source UNK Name Value Range Interpretation Code Description Data Source(s) Body weight 69.911 kg 69.911 kg [facility] ([facility]) Body mass index (BMI) [Ratio] 22.8 kg/m2 22.8 k g/m2 [facility] ([facility]) Body weight 154.12 [lb_av] 154.12 [lb_av] MEDEN T ([facility]) Body height 69 [in_i] 69 [in_i] [facility] ([facility]) 5'9" Diastolic blood pressure 70 mm[Hg] 70 mm[Hg] [facility] ([facility]) Systolic blood pressure 160 mm[Hg] 160 mm[Hg] M EDENT ([facility]) Diastolic blood pressure 66 mm[Hg] 66 mm[Hg] eCW1 ([facility]) Systolic blood pressure 118 mm[Hg] 118 mm[Hg] e CW1 ([facility]) Body temperature 97.8 [degF] 97.8 [degF] eCW1 ( [facility]) Respiratory rate 18 /min 18 /min eCW1 ([facility]) Heart rate 127 /min 127 /min W1 ([facility]) Body mass index (BMI) [Ratio] 23.26 kg/m2 23.26 kg/m2 W1 ([facility]) Body height 68 [in_us] 68 [in_us] eCW1 ([facility]) Body weight Measured 153 [lb_av] 153 [lb_av] eC W1 ([facility]) Body weight 68.947 kg 68.947 kg [facility] Body mass index (BMI) [Ratio] 22.4 kg/m2 22.4 k g/m2 [facility] ([facility], ) Body weight 152.00 [lb_av] 152.00 [lb_av] GABRIEL T ([facility], ) Body height 69 [in_i] 69 [in_i] [facility], [facility] 5'9" Diastolic blood pressure 84 mm[Hg] 84 mm[Hg] VAN ([facility], ) Systolic blood pressure 122 mm[Hg] 122 mm[Hg] [place] LIND ([facility], )
[2020-08-30 00:27] LABS: BASO % 0.2 % (0.0-1.0); EOS # 0.1 10^3/uL (0.0-0.5); HEMATOCRIT 55.6 % (42.0-52.0); HEMOGLOBIN 17.6 g/dl (13.5-17.5); LYMPH # 2.2 10^3/uL (1.5-5.0); LYMPH % 19.1 % (24.0-44.0); MEAN CORPUSCULAR HEMOGLOBIN 30.2 pg (27.0-33.0); MEAN CORPUSCULAR HGB CONC 31.7 g/dl (32.0-36.5); MEAN CORPUSCULAR VOLUME 95.4 fl (80.0-96.0); MONO % 8.9 % (0.0-5.0); NEUTROPHILS # 7.9 10^3/uL (1.5-8.5); NEUTROPHILS % 70.4 % (36.0-66.0); PLATELET COUNT, AUTOMATED 238 10^3/uL (150-450); RED BLOOD COUNT 5.83 10^6/uL (4.30-6.10); WHITE BLOOD COUNT 11.2 10^3/uL (4.0-10.0)
[2020-08-30 01:03] LABS: ALBUMIN 4.5 GM/DL (3.2-5.2); ALT/SGPT 28 U/L (12-78); BILIRUBIN,DIRECT 0.2 MG/DL (0.0-0.2); BILIRUBIN,TOTAL 0.5 MG/DL (0.2-1.0); BLOOD UREA NITROGEN 30 MG/DL (7-18); CALCIUM LEVEL 9.9 MG/DL (8.8-10.2); CARBON DIOXIDE LEVEL 30 MEQ/L (21-32); CHLORIDE LEVEL 104 MEQ/L (98-107); CK-MB VALUE MASS 2.1 NG/ML (<3.6); CPK CREATINE PHOSPHOKINASE 221 U/L (39-308); CREATININE FOR GFR 1.25 MG/DL (0.70-1.30); GLOMERULAR FILTRATION RATE > 60.0 (>42); GLUCOSE, FASTING 124 MG/DL (70-100); LIPASE 70 U/L (73-393); MB/CK RELATIVE INDEX 0.95 (< OR =4); POTASSIUM SERUM 4.4 MEQ/L (3.5-5.1); SODIUM LEVEL 140 MEQ/L (136-145); TOTAL PROTEIN 7.7 GM/DL (6.4-8.2); TROPONIN I < 0.02 NG/ML (< 0.10)
[2020-08-30] MEDS ORDERED: ISOVUE-370 76% 100ML VIAL As Ordered ONE (01:52)
--- OUTSIDE RECORDS SUMMARY | 2020-08-30 01:58 | CCD ---
Author Author [facility] Organization [facility] Address Unknown Phone Unavailable Support Name Relationship Address Phone TAMAR TREVINO Next Of Kin [address], [place] [id number] RE Next Of Kin Unknown Unavailable VIKY MCCONNELL Next Of Kin Unknown Jayesh, Viky ECON [address] [place] [address] Re-disclosure Warning The records that you are [...] is protected by Article 27-F of the [facility] Public Health law. If you continue you may have access to information: Regarding HIV / AIDS; Provided by facilities licensed or operated by the [facility] Office of Mental Health; or Provided by the [facility] Office for People With Developmental Disabilities. If such information is present, then the following [facility] mandated warning applies: This information [...] law may result in a fine or correction sentence or both. A general authorization for the release of medical or other information is NOT sufficient authorization for further disc losure. Allergies and Adverse Reactions Type Description Substance Reaction Status Data Source(s ) Tape Tape Tape Rash Active eCW1 ([facility]) Family History Family Member Name Family Member Gender Family Member Status Date o f Status Description Data Source(s) Unknown Female Problem MEDENT ([facility]) Encounters Encounter Providers Location Date Indications Data Source(s ) [facility] [address] [place] [phone] 09/22/2019 12:00:00 AM EST eCW1 (On license of [facility]) Immunizations Vaccine Date Status Description Data Source(s) INFLUENZA VIRUS VACCINE QUADRIVAL [id number](6 MOS AND UP)/PF 05/22/2020 12:00:00 AM EDT [...] type / Coverage type Policy ID Covered republican ID Covered republican's relationship to pimentel Policy Pimentel Plan Information [place] CCN [id number] SP [id number] MEDICARE [id number] SP [id number] A MEDICARE A [id number] Self [id number] A 'S ADMINISTRATION [id number] SP [id number] MEDICARE [id number] SP [id number] [id number] [place] O [id number] S [id number] MEDICARE [id number] SP [id number] [id number] [place] [id number] SP [id number] GHI ([employer] - [place] Supplemental Policy PP01 CAT: 790 Self PP01 CAT: 790 Medicare Part B [facility] - Western Medicare Primary 0 Self 0 GHI ([employer] [place] Supplemental Policy PP01 CAT: 790 Self PP01 CAT: 790 Medicare Part B of [facility] Medicare Primary 0 Self 0 GHI ([employer] - [place] Supplemental Policy PP01 CAT: 790 Self PP01 CAT: 790 Medicare Part B of [place] - Western Medicare Primary 0 Self 0 MEDICARE PART A -O/P [id number] 18 [id number] GHI [facility]-O/P [id number] 18 [id number] GHI ([employer] - [place] Supplemental Policy PP01 CAT: 790 Self PP01 CAT: 790 Medicare Part B of [place] - Western Medicare Primary 0 Self 0 GHI ([employer] - [place] Supplemental Policy PP01 CAT: 790 Self PP01 CAT: 790 Medicare Part B of [place] - Western Medicare Primary 0 Self 0 GHI ([employer] - [place] Supplemental Policy PP01 CAT: 790 Self PP01 CAT: 790 Medicare Part B of [place] - Western Medicare Primary 0 Self 0 [facility] [id number] SP [id number] Ghi/[employer] HLTH (pr) Medigap Part B Self Medicare [facility] Medicare Primary Self [facility] [id number] SP [id number] MEDICARE -O/P [id number] 18 [id number] SELF PAY UNAVAILABLE SP UNAVAILA BLE [facility] [id number] SP [id number] [employer] [id number] SP [id number] Problems, Conditions, and Diagnoses Code Display Name Description Problem Type Effective Dates Data Source(s) C67.9 Malignant tumor of urinary bladder Malig nant neoplasm of bladder, unspecified Problem 09/22/2019 12:00:00 AM EST eCW1 ([facility]) Z85.51 Personal history of primary malignant ne oplasm of urinary bladder Personal history of malignant neoplasm of bladder Problem 09/09 12:00:00 AM EST eCW1 ([facility]) Surgeries/Procedures Procedure Description Date Indications Data Source(s) Colonoscopy W/ Poly 01/11/2020 12:00:00 AM EDT MEDENT ([facility], ) CYSTOSCOPY 09/22/2019 12:00:00 AM EST e CW1 ([facility]) Results ID Date Data Source [id number] 04/05/2020 12:00:00 AM EDT [facility] Name Value Range Interpretation Code Description Data Clau rce(s) Supporting Document(s) SARS coronavirus 2 RNA [Presence] in Res piratory specimen by SIGIFREDO with probe detection [facility] This lab was ordered by [facility] and reported by [facility]. ID Date Data Source [id number] 03/30/2020 12:00:00 AM EDT [facility] Name Value Range Interpretation Code Description Data Clau rce(s) Supporting Document(s) SARS coronavirus 2 RNA [Presence] in Res piratory specimen by SIGIFREDO with probe detection [facility] This lab was ordered by [facility] and reported by [facility]. ID Date Data Source [id number] 01/11/2020 08:38:00 AM EDT MEDENT ([facility], ) Name Value Range Interpretation Code Description Data Clau rce(s) Supporting Document(s) Surgical pathology study Laboratory test result [facility] ([facility] [place], ) FINAL DIAGNOSIS Colon, polyps, polypectomy: Adenomatous [...] MD 01/12/2020 1345 ID Date Data Source [id number] 01/08/2020 11:20:00 AM EDT [facility] Name Value Range Interpretation Code Description Data Clau rce(s) Supporting Document(s) SARS CORONAVIRUS 2 RNA [facility] This lab was ordered by [facility] and reported by [facility]. ID Date Data Source Microscopic Only Urine (Auto) 09/22/2019 12:00:00 AM EST eCW 1 ([facility]) Name Value Range Interpretation Code Description Data Clau rce(s) Supporting Document(s) 0 0-3 RBC, URINE AUTO eCW1 ([facility]) 0 0-3 WBC, URINE AUTO eCW1 ([facility]) 0 0-6 SQUAMOUS EPITHELIAL CELL UR AU eCW1 ([facility]) NEGATIVE NEGATIVE BACTERIA, URINE AUTO eCW1 ([facility]) 0 0-1 HYALINE CAST, URINE AUTO eCW1 ([facility]) ID Date Data Source NON HOSPITAL ADMITTING CLERK CYTOLOGY REQ FOR SERVI 09/22/2019 12:00:00 AM EST eC W1 ([facility]) Name Value Range Interpretation Code Description Data Clau rce(s) Supporting Document(s) URINE eCW1 ([facility]) Procedure Vital Signs ID Date Data Source UNK Name Value Range Interpretation Code Description Data Source(s) Body weight 69.911 kg 69.911 kg [facility] ([facility]) Body mass index (BMI) [Ratio] 22.8 kg/m2 22.8 k g/m2 [facility] ([facility]) Body weight 154.12 [lb_av] 154.12 [lb_av] MEDEN T ([facility]) Body height 69 [in_i] 69 [in_i] [facility] ([facility]) 5'9" Diastolic blood pressure 70 mm[Hg] 70 mm[Hg] [facility] ([facility]) Systolic blood pressure 160 mm[Hg] 160 mm[Hg] M EDENT ([facility]) Diastolic blood pressure 66 mm[Hg] 66 mm[Hg] eCW1 ([facility]) Systolic blood pressure 118 mm[Hg] 118 mm[Hg] e CW1 ([facility]) Body temperature 97.8 [degF] 97.8 [degF] eCW1 ( [facility]) Respiratory rate 18 /min 18 /min eCW1 ([facility]) Heart rate 127 /min 127 /min W1 ([facility]) Body mass index (BMI) [Ratio] 23.26 kg/m2 23.26 kg/m2 W1 ([facility]) Body height 68 [in_us] 68 [in_us] eCW1 ([facility]) Body weight Measured 153 [lb_av] 153 [lb_av] eC W1 ([facility]) Body weight 68.947 kg 68.947 [facility] Body mass index (BMI) [Ratio] 22.4 kg/m2 22.4 k g/m2 [facility] ([facility] [place], ) Body weight 152.00 [lb_av] 152.00 [lb_av] GABRIEL T ([facility] [place], ) Body height 69 [in_i] 69 [in_i] [facility] 5'9" Diastolic blood pressure 84 mm[Hg] 84 mm[Hg] VAN ([facility] [place], ) Systolic blood pressure 122 mm[Hg] 122 mm[Hg] [facility] LIND ([facility] [place], )
[2020-08-30] MEDS ORDERED: ONDANSETRON 4MG/2ML VIAL IV ONE (02:00)
[2020-08-30] MEDS ORDERED: KETOROLAC 30 MG/ML 1ML VIAL IV ONE (02:00)
--- NOTE | 2020-08-30 03:01 | REPVR ---
PROCEDURE INFORMATION: Exam: CT Abdomen And Pelvis With Contrast Exam date and time: 08/30/2020 1:48 AM Age: 74 years old Clinical indication: Abdominal pain; Generalized; Additional info: Gen abd pain TECHNIQUE: Imaging protocol: Computed tomography of the abdomen and pelvis with intravenous contrast. Radiation optimization: All CT scans at this facility use at least one of these dose optimization techniques: automated exposure control; mA and/or kV adjustment per patient size (includes targeted exams where dose is matched to clinical indication); or iterative reconstruction. Contrast material: ISO; Contrast volume: 100 ml; Contrast route: INTRAVENOUS (IV); COMPARISON: CT ABD/PEL W/IV CONTRAST ONLY 06/10/2020 5:40 PM FINDINGS: Lungs: Severe centrilobular and paraseptal emphysema. Bibasilar atelectasis or scarring. Mediastinal space: Small hiatal hernia. Liver: Normal. No mass. Gallbladder and bile ducts: Normal. No calcified stones. No ductal dilation. Pancreas: Normal. No ductal dilation. Spleen: Normal. No splenomegaly. Adrenal glands: Normal. No mass. Kidneys and ureters: Normal. No hydronephrosis. Stomach and bowel: Early or partial small bowel obstruction with transition point in the pelvis adjacent to sigmoidectomy suture line. Scattered colonic diverticula. No evidence of acute diverticulitis. Appendix: No evidence of appendicitis. Intraperitoneal space: Unremarkable. No free air. No significant fluid collection. Vasculature: Atherosclerotic disease of the abdominal aorta. Atherosclerotic disease of coronary arteries. Lymph nodes: Unremarkable. No enlarged lymph nodes. Urinary bladder: Unremarkable as visualized. Reproductive: Mildly enlarged prostate. Bones/joints: Severe multilevel degenerative disease facet hypertrophy of the lumbar spine. Mild anterolisthesis of L5 on S1, degenerative in nature. Mild retrolisthesis L4 on L5. Soft tissues: Fat containing bilateral inguinal hernias. IMPRESSION: Early or partial small bowel obstruction with transition point in the pelvis adjacent to sigmoidectomy suture line. Electronically signed by: Hiren Gallardo On 08/30/2020 03:01:06 AM
[2020-08-30] MEDS ORDERED: MORPHINE 2 MG/ML 1ML VIAL (J2270) IV PRN (07:30)
[2020-08-30] MEDS ORDERED: NS 1,000 ML IV ONE (07:30)
[2020-08-30] MEDS ORDERED: ONDANSETRON 4MG/2ML VIAL IV PRN (07:30)
--- OUTSIDE RECORDS SUMMARY | 2020-08-30 07:33 | CCD ---
Author Author [facility] Organization [facility] Address Unknown Phone Unavailable Support Name Relationship Address Phone TAMAR TREVINO Next Of Kin [address] [place], [place] [phone] RE Next Of Kin Unknown Unavailable VIKY MCCONNELL Next Of Kin Unknown Wisam Mcconnellce ECON [address] [place] [address] Re-disclosure Warning The records that you are [...] is protected by Article 27-F of the [facility] Public Health law. If you continue you may have access to information: Regarding HIV / AIDS; Provided by facilities licensed or operated by the [facility] Office of Mental Health; or Provided by the [facility] Office for People With Developmental Disabilities. If such information is present, then the following [facility] mandated warning applies: This information has been [...] law may result in a fine or longterm sentence or both. A general authorization for the release of medical or other information is NOT sufficient authorization for further disc losure. Allergies and Adverse Reactions Type Description Substance Reaction Status Data Source(s ) Tape Tape Tape Rash Active eCW1 ([facility]) Family History Family Member Name Family Member Gender Family Member Status Date o f Status Description Data Source(s) Unknown Female Problem MEDENT ([facility]) Encounters Encounter Providers Location Date Indications Data Source(s ) [facility] [address] [place] [phone] 09/22/2019 12:00:00 AM EST eCW1 ([facility]) Immunizations Vaccine Date Status Description Data Source(s) INFLUENZA VIRUS VACCINE QUADRIVAL [id number](6 MOS AND UP)/PF 05/22/2020 12:00:00 AM EDT [...] type / Coverage type Policy ID Covered constitution party ID Covered constitution party's relationship to pimentel Policy Pimentel Plan Information 'S ADMINISTRATION [id number] SP [id number] MEDICARE [id number] SP [id number] A [employer] [place] CCN [id number] SP [id number] MEDICARE A [id number] Self [id number] A MEDICARE [id number] SP [id number] C44 [place] O [id number] S [id number] MEDICARE [id number] SP [id number] [id number] [facility] [id number] SP [id number] GHI ([employer] - [place] Supplemental Policy PP01 CAT: 790 Self PP01 CAT: 790 Medicare Part B [facility] - Western Medicare Primary 0 Self 0 GHI ([employer] - [place] Supplemental Policy PP01 CAT: 790 Self PP01 CAT: 790 Medicare Part B of [place] - Western Medicare Primary 0 Self 0 GHI ([employer] - [place] Supplemental Policy PP01 CAT: 790 Self PP01 CAT: 790 Medicare Part B of [place] - Western Medicare Primary 0 Self 0 MEDICARE PART A -O/P [id number] 18 [id number] GHI [facility]-O/P [id number] 18 [id number] GHI ([employer] - [place] Supplemental Policy PP01 CAT: 790 Self PP01 CAT: 790 Medicare Part B of [place] - Western Medicare Primary 0 Self 0 GHI ([employer] - [place] Supplemental Policy PP01 CAT: 790 Self PP01 CAT: 790 Medicare Part B of [facility] Medicare Primary 0 Self 0 GHI ([employer] - [place] Supplemental Policy PP01 CAT: 790 Self PP01 CAT: 790 Medicare Part B of [place] - Western Medicare Primary 0 Self 0 [facility] [id number] SP [id number] [employer] [facility] (pr) Medigap Part B Self Medicare [facility] Medicare Primary Self [facility] [id number] SP [id number] MEDICARE -O/P [id number] 18 [id number] SELF PAY UNAVAILABLE SP UNAVAILA BLE [facility] [id number] SP [id number] [employer] [id number] SP [id number] Problems, Conditions, and Diagnoses Code Display Name Description Problem Type Effective Dates Data Source(s) C67.9 Malignant tumor of urinary bladder Malig nant neoplasm of bladder, unspecified Problem 09/22/2019 12:00:00 AM EST eCW1 ([facility]) Z85.51 Personal history of primary malignant ne oplasm of urinary bladder Personal history of malignant neoplasm of bladder Problem 09/09 12:00:00 AM EST eCW1 ([facility]) Surgeries/Procedures Procedure Description Date Indications Data Source(s) Colonoscopy W/ Poly 01/11/2020 12:00:00 AM EDT MEDENT ([facility], ) CYSTOSCOPY 09/22/2019 12:00:00 AM EST e CW1 ([facility]) Results ID Date Data Source [id number] 04/05/2020 12:00:00 AM EDT [facility] Name Value Range Interpretation Code Description Data Clau rce(s) Supporting Document(s) SARS coronavirus 2 RNA [Presence] in Res piratory specimen by SIGIFREDO with probe detection [facility] This lab was ordered by [facility] and reported by [facility]. ID Date Data Source [id number] 03/30/2020 12:00:00 AM EDT [facility] Name Value Range Interpretation Code Description Data Clau rce(s) Supporting Document(s) SARS coronavirus 2 RNA [Presence] in Res piratory specimen by SIGIFREDO with probe detection [facility] This lab was ordered by [facility] and reported by [facility]. ID Date Data Source [id number] 01/11/2020 08:38:00 AM EDT MEDENT ([facility], ) Name Value Range Interpretation Code Description Data Clau rce(s) Supporting Document(s) Surgical pathology study Laboratory test result MEDENT ([facility], ) FINAL DIAGNOSIS Colon, polyps, polypectomy: Adenomatous [...] MD 01/12/2020 1345 ID Date Data Source [id number] 01/08/2020 11:20:00 AM EDT [facility] Name Value Range Interpretation Code Description Data Clau rce(s) Supporting Document(s) SARS CORONAVIRUS 2 RNA [facility] This lab was ordered by [facility] and reported by [facility]. ID Date Data Source Microscopic Only Urine (Auto) 09/22/2019 12:00:00 AM EST eCW 1 ([facility]) Name Value Range Interpretation Code Description Data Clau rce(s) Supporting Document(s) 0 0-3 RBC, URINE AUTO eCW1 ([facility]) 0 0-3 WBC, URINE AUTO eCW1 ([facility]) 0 0-6 SQUAMOUS EPITHELIAL CELL UR AU eCW1 ([facility]) NEGATIVE NEGATIVE BACTERIA, URINE AUTO eCW1 ([facility]) 0 0-1 HYALINE CAST, URINE AUTO eCW1 ([facility]) ID Date Data Source NON ORTHOPEDIC CODER CYTOLOGY REQ FOR SERVI 09/22/2019 12:00:00 AM EST eC W1 ([facility]) Name Value Range Interpretation Code Description Data Clau rce(s) Supporting Document(s) URINE eCW1 ([facility]) Procedure Vital Signs ID Date Data Source UNK Name Value Range Interpretation Code Description Data Source(s) Body weight 69.911 kg 69.911 kg [facility] ([facility]) Body mass index (BMI) [Ratio] 22.8 kg/m2 22.8 k g/m2 [facility] ([facility]) Body weight 154.12 [lb_av] 154.12 [lb_av] MEDEN T ([facility]) Body height 69 [in_i] 69 [in_i] [facility] ([facility]) 5'9" Diastolic blood pressure 70 mm[Hg] 70 mm[Hg] [facility] ([facility]) Systolic blood pressure 160 mm[Hg] 160 mm[Hg] M EDENT ([facility]) Diastolic blood pressure 66 mm[Hg] 66 mm[Hg] eCW1 ([facility]) Systolic blood pressure 118 mm[Hg] 118 mm[Hg] e CW1 ([facility]) Body temperature 97.8 [degF] 97.8 [degF] eCW1 ( [facility]) Respiratory rate 18 /min 18 /min eCW1 ([facility]) Heart rate 127 /min 127 /min W1 ([facility]) Body mass index (BMI) [Ratio] 23.26 kg/m2 23.26 kg/m2 W1 ([facility]) Body height 68 [in_us] 68 [in_us] eCW1 ([facility]) Body weight Measured 153 [lb_av] 153 [lb_av] eC W1 ([facility]) Body weight 68.947 kg 68.947 [facility] Body mass index (BMI) [Ratio] 22.4 kg/m2 22.4 k g/m2 VAN ([facility], ) Body weight 152.00 [lb_av] 152.00 [lb_av] LISAEN T ([facility], ) Body height 69 [in_i] 69 [in_i] VAN ([facility], ) 5'9" Diastolic blood pressure 84 mm[Hg] 84 mm[Hg] VAN ([facility], ) Systolic blood pressure 122 mm[Hg] 122 mm[Hg] [facility] ([facility], )
[2020-08-30] MEDS ORDERED: EQL50TAB2 PO (08:30)
[2020-08-30] MEDS ORDERED: METH-1164 PO (08:30)
[2020-08-30 10:01] LABS: RSV AMPLIFICATION NEGATIVE (NEGATIVE)
[2020-08-30] MEDS: PANTOPRAZOLE 40MG VIAL (C9113 PER 1) IV SCH (10:17)
[2020-08-30 11:05] VITALS: BP 149/87
[2020-08-30] MEDS: NS 1,000 ML IV SCH ×2 (11:17→15:19)
[2020-08-30 14:11] LABS: BASO % 0.2 % (0.0-1.0); EOS # 0.1 10^3/uL (0.0-0.5); EOS % 1.1 % (0.0-3.0); HEMATOCRIT 52.7 % (42.0-52.0); HEMOGLOBIN 16.8 g/dl (13.5-17.5); LYMPH # 1.6 10^3/uL (1.5-5.0); LYMPH % 19.1 % (24.0-44.0); MEAN CORPUSCULAR HEMOGLOBIN 30.3 pg (27.0-33.0); MEAN CORPUSCULAR HGB CONC 31.9 g/dl (32.0-36.5); MEAN CORPUSCULAR VOLUME 95.1 fl (80.0-96.0); MONO # 1.2 10^3/uL (0.0-0.8); MONO % 14.6 % (0.0-5.0); NEUTROPHILS # 5.2 10^3/uL (1.5-8.5); NEUTROPHILS % 64.8 % (36.0-66.0); PLATELET COUNT, AUTOMATED 201 10^3/uL (150-450); RED BLOOD COUNT 5.54 10^6/uL (4.30-6.10); WHITE BLOOD COUNT 8.1 10^3/uL (4.0-10.0)
[2020-08-30] MEDS ORDERED: ALBUTEROL 90 MCG/ACT 8GM HFA INHALER INH PRN (14:15)
[2020-08-30] MEDS: atenoloL 50 MG TAB PO SCH (14:46)
[2020-08-30 14:47] LABS: BLOOD UREA NITROGEN 28 MG/DL (7-18); CALCIUM LEVEL 8.9 MG/DL (8.8-10.2); CARBON DIOXIDE LEVEL 27 MEQ/L (21-32); CHLORIDE LEVEL 110 MEQ/L (98-107); CREATININE FOR GFR 1.04 MG/DL (0.70-1.30); GLOMERULAR FILTRATION RATE > 60.0 (>42); GLUCOSE, FASTING 85 MG/DL (70-100); POTASSIUM SERUM 5.1 MEQ/L (3.5-5.1); SODIUM LEVEL 142 MEQ/L (136-145)
[2020-08-30] MEDS: amLODIPine 5 MG TAB PO SCH (14:47)
[2020-08-30] MEDS: TIOTROPIUM INHALER/CAPSULE (SPIRIVA) INH SCH (15:07)
--- NOTE | 2020-08-30 15:33 | HPE ---
HISTORY AND PHYSICAL DATE OF ADMISSION: 08/30/2020 ADMITTING DIAGNOSIS: Small bowel obstruction secondary to adhesions. HISTORY OF PRESENT ILLNESS: The patient is a pleasant 74-year-old man who presented to the emergency department at approximately 11:30 on the evening of the 29 of August complaining of abdominal pain. He reported that he had noted the onset of this pain at about noon on the . This was located primarily in the left mid and lower abdomen. He felt some nausea, but denied any vomiting. He denied any history of prior similar pain. He is status post a sigmoid colectomy for cancer 15 years ago. He also had an appendectomy previously. He denies any other significant abdominal surgery. In the emergency department, he was evaluated with some laboratory studies and had a CT scan of the abdomen and pelvis. The CT scan revealed some sijfpx-ng-lvjjilwjns dilated proximal small bowel extending down into the pelvis where the radiologist felt there was a transition point to decompressed small bowel. I was asked to evaluate the patient and he is now admitted for management of a small bowel obstruction. ALLERGIES: The patient denies any known drug allergies. MEDICATIONS: 1. Albuterol inhaler 2 puffs q.i.d. as needed for shortness of breath. 2. Amlodipine besylate 5 mg p.o. daily. 3. Aspirin 81 mg p.o. daily. 4. Atenolol 50 mg p.o. daily. 5. Budesonide-formoterol inhaler (Symbicort) 160/4.5 mcg 2 puffs inhaled twice daily. 6. Clopidogrel 75 mg p.o. on retiring 7. Fluticasone propionate nasal spray, one spray daily as needed. 8. Levothyroxine 88 mcg p.o. daily in the morning. 9. Magnesium oxide 400 mg p.o. every evening. 10. Metformin 250 mg p.o. twice daily. 11. Methocarbamol 500 mg tablets, one-half tablet p.o. daily at bedtime as needed for neck pain. 12. Multivitamin with minerals daily. 13. Riboflavin 400 mg p.o. daily at noon. 14. Rosuvastatin 40 mg p.o. nightly. 15. Tiotropium bromide (Spiriva Respimat) two inhalation daily. 16. Vitamin B complex one tablet daily. MEDICAL HISTORY: Emphysema. He is a former smoker who quit in 2001. He denies obstructive sleep apnea and does not use any oxygen at home. He has a history of atherosclerotic peripheral vascular disease and has had right carotid surgery on three occasions. He denies any coronary artery disease or chest pain. He has a history of hypercholesterolemia and hypertension. He did have colorectal cancer approximately 15 years ago. He has a history of bladder cancer, which was treated cystoscopically. He suffered a fall last year with two rib fractures. He has a history of oza-dxahthe-xbepamvmo diabetes mellitus and hypothyroidism. He did have methicillin-sensitive Staphylococcus aureus 15 years ago. SURGICAL HISTORY: 1. Tonsillectomy in the distant past. 2. He has had his right carotid artery operated on three times, first as an endarterectomy, then as a stenting, and finally as an interposition graft with a vein from his leg. [facility]. 3. He had a sigmoid colectomy. 4. He has had his bladder cancer treated cystoscopically, although I do not have any information on his most recent followup. FAMILY HISTORY: Noncontributory. REVIEW OF SYSTEMS: No history of chest pain or palpitations. He denies cough, wheezing, or sputum production. He has no history of stroke or seizure. He does have some exertional shortness of breath. He is not normally on any oxygen at home. The patient denies any abdominal pain. He reports irregular bowel movements with some constipation. He has not noticed any rectal bleeding. He denies any dysuria or hematuria. He has no particular bone or joint complaints currently. PHYSICAL EXAMINATION: General: Thin, pleasant, older man, sitting propped up in the emergency department stretcher, looking fairly comfortable. Vital Signs: His most recent vital signs show a temperature of 98.7. His pulse is 69, respirations 20, and blood pressure 120/69. Skin: Warm and dry. HEENT: Sclerae are anicteric. Neck: Scarring on the right consistent with his prior surgery. Heart: Regular rate and rhythm. Lungs: Distant breath sounds bilaterally, but without any rales or rhonchi. Abdomen: Mildly protuberant and this appears to be somewhat eccentric, more so on the left. He has a low abdominal scar, which is slightly to the left of the midline extending up to just above the umbilicus. There is no sign of incisional hernia. He does have bowel sounds present. There is some tympany to percussion in his left upper quadrant and left mid abdomen. There is no tenderness to percussion. There is some mild tenderness to palpation with some fullness in the left side of the abdomen, but he does not have significant tenderness. He described it as more of a discomfort. Extremities: Without edema. He has palpable radial pulses bilaterally. LABORATORY STUDIES: White count of 11, hemoglobin 18, hematocrit 56, and a platelet count of 238,000. Differential count shows 70% neutrophils, 19% lymphocytes, and 9% monocytes. Chemistry profile shows normal electrolytes with a BUN of 30, creatinine 1.25, and glucose 124. Liver function tests are all normal. There is a minimal elevation of the alkaline phosphatase to 147. Troponin is less than 0.02. Lipase is 70. His total proteins and albumin are normal. IMAGES: CT imaging, I reviewed personally. I also reviewed the report from the radiologist. He does have some kqkf-cc-hwyquvmb proximal small bowel dilation with definite decompressed small bowel in the pelvis and in the right lower quadrant. There is evidence for an anastomosis in the rectosigmoid region. The radiologist felt that the findings were consistent with early or partial small bowel obstruction with a transition point in the pelvis. IMPRESSION: 1. Small bowel obstruction secondary to adhesions. 2. Emphysema. 3. Atherosclerotic carotid artery disease status post surgery. 4. Hypertension. 5. Hyperlipidemia. 6. Hypothyroidism. 7. History of colon cancer status post resection. 8. History of bladder cancer. PLAN: The patient reports that his symptoms have diminished as far as the pain is concerned. He still feels somewhat full, but has had no nausea recently and has had no vomiting. His CT scan, which was done several hours ago, suggests a possible bowel obstruction and his physical findings would seem to be consistent with this. I have recommended to the patient that we admit him to the hospital for management. He will be kept n.p.o. for now. If he develops progressive distention or nausea, then a NG tube can be placed. He does not require a Faustin catheter at this time. He does seem to be somewhat dehydrated based on his hemoconcentration and I will give him a bolus of normal saline and follow with maintenance rate fluids with normal saline. I will continue his usual respiratory medications. He will also remain on his beta radha. He will be followed by with serial exams. I will repeat his labs this afternoon to see how his hemoconcentration has responded and also to follow his white blood cell count. If his symptoms resolve, and they may, then we will start him on some clear liquids and advance his diet as tolerated. The patient had an opportunity to ask questions and is agreeable with my plan for care. SHAWN
[2020-08-30] MEDS: KETOROLAC 30 MG/ML 1ML VIAL IV PRN (18:53)
[2020-08-30] MEDS: SYMBICORT 160/4.5MCG INHALER 6GM INH SCH (20:00)
--- NOTE | 2020-08-30 20:51 | ECGEPIP ---
[facility] - ED Test Date: 2020-08-30 Pat Name: ELISA MCCONNELL Department: Room: - Gender: Male [employer]: VIANCA : 1945 Requested By: JOVAN Guerra Order Number: [id number] Reading MD: Funmilayo Zamudio Measurements Intervals [place] Rate: 71 P: 78 NH: 149 QRS: 90 QRSD: 146 T: 35 QT: 427 QTc: 465 Interpretive Statements SINUS RHYTHM WITH OCCASIONAL VENTRICULAR PREMATURE COMPLEXES RIGHT BUNDLE BRANCH BLOCK decreased rate 06/10/20 Electronically Signed on 08-30-2020 20:51:27 EST by Funmilayo Zamudio
[2020-08-30 22:00] VITALS: BP 102/64
[2020-08-31 02:00] VITALS: BP 132/72
[2020-08-31] MEDS: NS 1,000 ML IV SCH ×4 (02:05→23:19)
[2020-08-31] MEDS: LEVOTHYROXINE 88MCG TABLET (0.088 MG) PO SCH (05:33)
[2020-08-31 06:00] VITALS: BP 102/62
[2020-08-31] MEDS: TIOTROPIUM INHALER/CAPSULE (SPIRIVA) INH SCH (07:13)
[2020-08-31] MEDS: SYMBICORT 160/4.5MCG INHALER 6GM INH SCH ×2 (07:13→20:33)
[2020-08-31] MEDS: PANTOPRAZOLE 40MG VIAL (C9113 PER 1) IV SCH (08:48)
[2020-08-31] MEDS: KETOROLAC 30 MG/ML 1ML VIAL IV PRN ×2 (08:56→20:26)
[2020-08-31] MEDS: atenoloL 50 MG TAB PO SCH (09:00)
[2020-08-31] MEDS: amLODIPine 5 MG TAB PO SCH (09:00)
[2020-08-31 10:00] VITALS: BP 130/63
--- NOTE | 2020-08-31 13:11 | IPNPDOC ---
Text Note Date of Service The patient was seen on 08/31/20. NOTE No acute events overnight. Denies abd pains, nausea, emesis or BM. He did pass a little flatus, and overall feels better than he did on admission. VSSAF NAD abd - soft, slightly distended, non tender A) 74y/o male with likely partial sbo secondary to adhesions from prior surgery. Overall he feels better than admission, but he is still very distended and has not had a BM. P) sips and chips today encourage ambulation repeat abd xray in the am. if any nausea, emesis, or lack of improvement tomorrow then we will attempt NG placement with decompression so that he can undergo a minimally invasive procedure to treat his obstruction. Patrice Sabillon DO VS,Dolly, I+O VSDolly, I+O Laboratory Tests 08/30/20 13:56 Vital Signs Date Time Temp Pulse Resp B/P (MAP) Pulse Ox O2 Delivery O2 Flow Rate FiO2 08/31/20 10:00 97.0 67 18 130/63 (85) 96 Nasal Cannula 1.0 I&O- Last 24 Hours up to 6 AM 08/31/20 06:00 Intake Total 2175 ml Output Total 350 ml Balance 1825 ml LEOBARDO SABILLON DO Aug 31, 2020 13:11
[2020-08-31 14:00] VITALS: BP 130/64
[2020-08-31 22:00] VITALS: BP 130/61
[2020-09-01 02:00] VITALS: BP 137/67
[2020-09-01] MEDS: NS 1,000 ML IV SCH ×3 (03:32→22:30)
[2020-09-01] MEDS: KETOROLAC 30 MG/ML 1ML VIAL IV PRN ×2 (05:16→20:08)
[2020-09-01] MEDS: LEVOTHYROXINE 88MCG TABLET (0.088 MG) PO SCH (05:30)
[2020-09-01 06:00] VITALS: BP 128/62
--- NOTE | 2020-09-01 07:39 | REP ---
INDICATION: sbo. COMPARISON: None TECHNIQUE: Supine and upright views of the abdomen FINDINGS: Mildly dilated gas and fluid-filled small bowel loops are seen in the abdomen. The organ silhouettes in so far as delineated are within normal limits. There is no evidence of free intraperitoneal air. IMPRESSION: Early/partial SBO versus ileus and consistent with the CT finding earlier today. <Electronically signed by Paddy Abebe > 09/01/20 0724
[2020-09-01] MEDS: TIOTROPIUM INHALER/CAPSULE (SPIRIVA) INH SCH (08:00)
[2020-09-01] MEDS: amLODIPine 5 MG TAB PO SCH (09:52)
[2020-09-01] MEDS: PANTOPRAZOLE 40MG VIAL (C9113 PER 1) IV SCH (09:52)
[2020-09-01] MEDS: atenoloL 50 MG TAB PO SCH (09:53)
[2020-09-01] MEDS: SYMBICORT 160/4.5MCG INHALER 6GM INH SCH ×2 (09:56→19:50)
[2020-09-01 10:00] VITALS: BP 127/61
--- NOTE | 2020-09-01 11:22 | IPNPDOC ---
Text Note Date of Service The patient was seen on 09/01/20. NOTE No acute events overnight. He has had a couple small BMs, and flatus. He does still have lower abd pains and the bloating is not improved. No problems with nausea or emesis. Abd xray this am does not show any improvement. VSSAF NAD abd - soft, slightly distended, non tender, no improvement from yesterday A) 74y/o male with likely partial sbo secondary to adhesions from prior surgery. Overall he feels better than admission, but he is still very distended P) sips and chips today place NG to LIS encourage ambulation either the NG will help him to relieve his obstruction, or will allow us to discuss a minimally invasive procedure in the next 48 hours to help fix the obstruction. Patrice Sabillon DO VS,Fishbone, I+O VS, Fishbone, I+O Vital Signs Date Time Temp Pulse Resp B/P (MAP) Pulse Ox O2 Delivery O2 Flow Rate FiO2 09/01/20 10:00 97.6 70 20 127/61 (83) 95 Nasal Cannula 2.0 I&O- Last 24 Hours up to 6 AM 09/01/20 06:00 Intake Total 2900 ml Output Total 350 ml Balance 2550 ml LEOBARDO SABILLON DO Sep 01, 2020 11:22
--- NOTE | 2020-09-01 12:41 | REP ---
INDICATION: Confirm NG tube placement. COMPARISON: 06/11/2020 a two view exam FINDINGS: The technique utilized in obtaining the radiograph has magnified the cardiac silhouette and accentuated the interstitial markings. The superior mediastinal structures are midline. The cardiac silhouette is unremarkable in size, shape, and position. The diaphragmatic surfaces of the lungs are regular, and the costophrenic angles are clear. There are chronic lung field changes with parenchymal bulla particularly in the right upper lobe status quo. Scattered interstitial fibrotic changes are again noted. No definite acute patchy parenchymal opacities or pleural effusions have developed. The imaged osseous structures are intact. A curvilinear radiodensity consistent with a nasogastric tube is seen coursing the esophagus the proximal port of which is at or just distal to the region of the gastroesophageal junction. The tip of the tube is in the region of the stomach fundal/body region. IMPRESSION: 1. Chronic lung field changes as described above. Correlate clinically to rule out the possibility of acute disease superimposed upon chronic change. 2. Nasogastric tube as described above. Consider 5 cm advancement. <Electronically signed by Paddy Abebe > 09/01/20 [id number]
[2020-09-01 14:00] VITALS: BP 129/58
[2020-09-01 18:00] VITALS: BP 135/64
[2020-09-01 22:00] VITALS: BP 144/59
[2020-09-02 02:00] VITALS: BP 122/71
[2020-09-02] MEDS: LEVOTHYROXINE 88MCG TABLET (0.088 MG) PO SCH (05:52)
[2020-09-02] MEDS: NS 1,000 ML IV SCH (05:53)
[2020-09-02 06:00] VITALS: BP 136/70
[2020-09-02 06:52] LABS: BASO % 0.3 % (0.0-1.0); EOS # 0.2 10^3/uL (0.0-0.5); EOS % 2.5 % (0.0-3.0); HEMATOCRIT 49.5 % (42.0-52.0); HEMOGLOBIN 15.8 g/dl (13.5-17.5); LYMPH # 1.6 10^3/uL (1.5-5.0); MEAN CORPUSCULAR HEMOGLOBIN 30.4 pg (27.0-33.0); MEAN CORPUSCULAR HGB CONC 31.9 g/dl (32.0-36.5); MEAN CORPUSCULAR VOLUME 95.2 fl (80.0-96.0); MONO % 12.7 % (0.0-5.0); NEUTROPHILS # 4.7 10^3/uL (1.5-8.5); NEUTROPHILS % 63.2 % (36.0-66.0); PLATELET COUNT, AUTOMATED 186 10^3/uL (150-450); WHITE BLOOD COUNT 7.5 10^3/uL (4.0-10.0)
[2020-09-02 07:10] LABS: BLOOD UREA NITROGEN 19 MG/DL (7-18); CALCIUM LEVEL 8.5 MG/DL (8.8-10.2); CARBON DIOXIDE LEVEL 20 MEQ/L (21-32); CHLORIDE LEVEL 109 MEQ/L (98-107); GLOMERULAR FILTRATION RATE > 60.0 (>42); GLUCOSE, FASTING 61 MG/DL (70-100); POTASSIUM SERUM 4.6 MEQ/L (3.5-5.1); SODIUM LEVEL 143 MEQ/L (136-145)
[2020-09-02] MEDS: TIOTROPIUM INHALER/CAPSULE (SPIRIVA) INH SCH (07:30)
[2020-09-02] MEDS: SYMBICORT 160/4.5MCG INHALER 6GM INH SCH ×2 (07:31→19:39)
[2020-09-02] MEDS ORDERED: GASTROGRAFIN SOLUTION 30ML (Q9963) As Ordered ONE (08:46)
[2020-09-02 10:30] VITALS: BP 158/79
[2020-09-02] MEDS: PANTOPRAZOLE 40MG VIAL (C9113 PER 1) IV SCH (10:47)
[2020-09-02] MEDS: ACETAMINOPHEN TAB 650MG DOSE (2X325MG) PO PRN ×2 (10:47→20:31)
[2020-09-02] MEDS: amLODIPine 5 MG TAB PO SCH (10:48)
[2020-09-02] MEDS: atenoloL 50 MG TAB PO SCH (10:48)
[2020-09-02 14:00] VITALS: BP 127/65
[2020-09-02] MEDS: LR 1,000 ML IV SCH (14:40)
--- NOTE | 2020-09-02 15:44 | REP ---
INDICATION: partial SBO - water soluble contrast. COMPARISON: None TECHNIQUE: This procedure was performed by Leatha Bravo, [facility], under the direct supervision of Dr. Simon. Images were reviewed with Dr. Simon prior to dictation. Approximately 500 mL of a 50/50 solution of Gastrografin and water was instilled via the nasogastric tube, in order to complete a water soluble small bowel follow-through. FINDINGS: The creel operator film shows no organomegaly or pathological masses. The intestinal gas pattern is unremarkable. Small bowel transit time is approximately 20 minutes. During fluoroscopy gentle palpation shows all loops are freely movable and pliable. There are borderline caliber dilated small bowel loops in the central pelvis. There is no transition to suggest a partial small bowel obstruction. Spot filming of the terminal ileum was extremely limited due to bowel crowding. IMPRESSION: 1.Borderline caliber dilated loops of small bowel in the central pelvis. 2.Small bowel during transit time of approximately 20 minutes. 0.1 minutes of fluoroscopy time was utilized for this procedure. Some fluoroscopic images are performed with last image hold technology. These images require no additional radiation. <Electronically signed by Leatha Bravo > 09/02/20 1523 <Electronically signed by Hal Simon > 09/02/20 1548
[2020-09-02 18:00] VITALS: BP 139/70
[2020-09-02 22:00] VITALS: BP 155/75
--- NOTE | 2020-09-02 22:08 | IPN ---
PROGRESS NOTE DATE: 09/02/2020 SUBJECTIVE: The patient was admitted on the 30 of August with a history of some abdominal pain and distention with a CT scan showing evidence for a small-bowel obstruction. Over the weekend he was monitored by my covering physician. He had several small bowel movements and a small amount of flatus but remained somewhat distended and uncomfortable. A nasogastric tube was therefore placed on the . This remains in place in the morning of the . The patient reports that he has had small amounts of flatus and two small bowel movements since yesterday. He has a very mild ache in the left side of the abdomen but no significant pain. Vital signs show that the patient has been afebrile over the past 24 hours. His pulse is in the 60's. Blood pressure is excellent. INTAKE AND OUTPUT: Yesterday he had 1,475 in with 1,575 of urine output. PHYSICAL EXAMINATION: GENERAL APPEARANCE: The patient is lying quietly on the hospital bed with a nasogastric tube in place. He is alert and oriented. SKIN: Warm and dry. HEENT: Sclerae are anicteric. HEART: Regular rhythm in the 60's. LUNGS: Clear. ABDOMEN: Flat to perhaps very mildly protuberant. He has a few bowel sounds present. There is no tenderness to percussion and no tympani to percussion. The abdomen is soft throughout with some minimal direct tenderness in the left mid abdominal just lateral to the umbilicus. There is no mass palpable. LABORATORY STUDIES: CBC showing a white count of 8, hemoglobin 16, hematocrit 50 and a platelet count of 186,000. Differential count shows 63% neutrophils, 21% lymphocytes and 13% monocytes. Chemistry profile shows a sodium of 143, potassium 4.6, chloride 109, CO2 of 20, BUN of 19, creatinine 1.0 and a glucose of 61. Because of his benign appearing abdomen, a small bowel follow through study was obtained with his NG tube in place. This was accomplished this morning and showed rapid transit of contrast through the small bowel within under an hour. The contrast was clearly seen in the right colon. The radiologist reported that no definite obstruction or transition point was identified. IMPRESSION: The patient has a small bowel follow through study showing no evidence of definite obstruction. He has had several bowel movements since the study was done. PLAN: The patient's NG tube is removed. He will be started on some clear liquids. I have changed his IV fluids to lactated Ringer's from normal saline and reduced the rate. If he tolerates the liquids today, then we can advance his diet in the morning and consider discharge later in the day tomorrow. SHAWN
[2020-09-03 06:00] VITALS: BP 149/74
[2020-09-03] MEDS: LEVOTHYROXINE 88MCG TABLET (0.088 MG) PO SCH (06:14)
[2020-09-03] MEDS: ACETAMINOPHEN TAB 650MG DOSE (2X325MG) PO PRN ×2 (06:14→20:42)
[2020-09-03] MEDS: LR 1,000 ML IV SCH (06:14)
[2020-09-03] MEDS: TIOTROPIUM INHALER/CAPSULE (SPIRIVA) INH SCH (07:35)
[2020-09-03] MEDS: SYMBICORT 160/4.5MCG INHALER 6GM INH SCH ×2 (07:35→19:40)
[2020-09-03] MEDS: amLODIPine 5 MG TAB PO SCH (09:25)
[2020-09-03] MEDS: PANTOPRAZOLE 40MG VIAL (C9113 PER 1) IV SCH (09:26)
[2020-09-03] MEDS: atenoloL 50 MG TAB PO SCH (09:26)
[2020-09-03 10:00] VITALS: BP 148/72
[2020-09-03 14:00] VITALS: BP 137/71
[2020-09-03 16:00] VITALS: BP 137/71
[2020-09-03] MEDS ORDERED: IBUPROFEN 600MG TAB PO PRN (16:45)
[2020-09-03 18:00] VITALS: BP 157/87
[2020-09-03] MEDS ORDERED: ZOSYN 3.375GM VIAL (J2543) As Ordered ONE (18:52)
[2020-09-03 22:00] VITALS: BP 142/72
--- NOTE | 2020-09-03 22:47 | IPN ---
PROGRESS NOTE DATE: 09/03/2020 HISTORY: The patient was admitted on the with evidence for a small-bowel obstruction both clinically and by CT scan. He appeared to have improved somewhat by yesterday and a small-bowel follow through showed no evidence of persistent obstruction. He was started on clear liquids yesterday and has tolerated those well. He was advanced to full liquids this morning. Vital signs show that he has been afebrile over the past 24 hours. His pulse was in the mid 60s to low 80s. Blood pressure is good. Intake and output showed that yesterday he had 1900 in with 1650 out. He had 750 ml of urine output yesterday. He had only a small amount of oral intake recorded yesterday. PHYSICAL EXAMINATION: The patient denies any nausea or vomiting. Heart examination is a regular rate and rhythm. The lungs are clear. The abdomen is flat. He has bowel sounds present. The abdomen is soft and non-distended. There is a minimal area of discomfort just to the left of the midline at about the mid point between the umbilicus and the pubis. The patient has no new labs today. IMPRESSION: The patient has been tolerating clear liquids and now full liquids. His obstruction appears to be resolved at least as far as liquids are concern. PLAN: The patient will be advanced to a regular diet. If he tolerates those this evening and in the morning, he will be discharged home tomorrow. SHAWN
[2020-09-04 02:00] VITALS: BP 151/79
[2020-09-04] MEDS: LEVOTHYROXINE 88MCG TABLET (0.088 MG) PO SCH (05:55)
[2020-09-04] MEDS: ACETAMINOPHEN TAB 650MG DOSE (2X325MG) PO PRN (05:59)
[2020-09-04 06:00] VITALS: BP 124/72
[2020-09-04] MEDS: TIOTROPIUM INHALER/CAPSULE (SPIRIVA) INH SCH (07:40)
[2020-09-04] MEDS: SYMBICORT 160/4.5MCG INHALER 6GM INH SCH (07:41)
[2020-09-04 09:21] VITALS: BP 161/81
[2020-09-04] MEDS: amLODIPine 5 MG TAB PO SCH (09:21)
[2020-09-04] MEDS: atenoloL 50 MG TAB PO SCH (09:21)
[2020-09-04 10:00] VITALS: BP 136/79
== END 2020-09-04 13:16 | disposition home or self-care (01) | DRG 390 ==
LOC: M ED 23:41 → M ED INP 08-30 07:19 → M MSPAV 08-30 11:02
PROVIDERS: ADMIT Surgery; ATTEND Surgery
DX: K56.50 Intestinal adhesions [bands], unspecified as to partial versus complete obstruction (principal); J43.9 Emphysema, unspecified; I10 Essential (primary) hypertension; Z79.899 Other long term (current) drug therapy; Z79.82 Long term (current) use of aspirin; E78.5 Hyperlipidemia, unspecified; E03.9 Hypothyroidism, unspecified; Z85.038 Personal history of other malignant neoplasm of large intestine; Z85.51 Personal history of malignant neoplasm of bladder; E11.9 Type 2 diabetes mellitus without complications

== ENCOUNTER → 2021-05-20 | Outpatient (REF) | payer OTHER, MEDICARE ==
[~2021-05-20] MED LIST changes: +EQL50TAB2 PO; +METH-1164 PO
[2021-05-20 13:58] LABS: BACTERIA, URINE AUTO NEGATIVE (NEGATIVE); RBC, URINE AUTO 0 /HPF (0-3); SQUAMOUS EPITHELIAL CELL UR AU 0 /HPF (0-6); WBC, URINE AUTO 0 /HPF (0-3)
== END ==
LOC: M SMT 13:17
PROVIDERS: ATTEND Specialist
DX: Z85.51 Personal history of malignant neoplasm of bladder (principal); Z79.899 Other long term (current) drug therapy
CPT/HCPCS: 81015; 87086; 88108; G0463

== ENCOUNTER → 2022-06-29 | Outpatient (CLI) | payer OTHER ==
[~2022-06-29] MED LIST changes: -DOXY-350 PO; +DOXY-444 PO; +LEVO1TAB40 PO; -LEVO750T13 PO
== END ==
LOC: M RAD 10:03
PROVIDERS: ATTEND Nurse Practitioner Family
DX: I65.23 Occlusion and stenosis of bilateral carotid arteries (principal)

== ENCOUNTER → 2023-07-30 | Outpatient (CLI) | payer OTHER | LOC: M RAD 09:42 | PROVIDERS: ATTEND Internal Medicine Pulmonary Disease | DX: J43.9 Emphysema, unspecified (principal); I25.10 Atherosclerotic heart disease of native coronary artery without angina pectoris; R91.8 Other nonspecific abnormal finding of lung field ==

== ENCOUNTER → 2023-08-24 | Outpatient (CLI) | payer OTHER | LOC: M RAD 13:39 | PROVIDERS: ATTEND Nurse Practitioner Family | DX: I65.23 Occlusion and stenosis of bilateral carotid arteries (principal) ==

== ENCOUNTER 2023-11-25 07:27 | Day surgery (SDC) | payer OTHER ==
[~2023-11-25] VITALS: Ht 175.3 cm; Wt 72.1 kg
[2023-11-25] MEDS: NS 1,000 ML IV ONE (07:58)
[2023-11-25] MEDS ORDERED: propofoL 200 MG/20 ML VIAL As Ordered ONE (08:36)
[2023-11-25] MEDS ORDERED: LIDOCAINE 2% 100MG/5ML SDV (FOR ANES.) As Ordered ONE (08:36)
[2023-11-25] MEDS ORDERED: ePHEDrine SULFATE 25 MG/5 ML(5MG/ML) SYRINGE As Ordered ONE (08:49)
[2023-11-25 09:27] VITALS: BP 123/65; O2SAT 93
== END 2023-11-25 09:29 | disposition home or self-care (01) ==
LOC: M OPP 07:27
PROVIDERS: ATTEND Surgery
DX: Z12.11 Encounter for screening for malignant neoplasm of colon (principal); Z86.010 Personal history of colon polyps; Z85.038 Personal history of other malignant neoplasm of large intestine; D12.6 Benign neoplasm of colon, unspecified; I25.10 Atherosclerotic heart disease of native coronary artery without angina pectoris; R07.9 Chest pain, unspecified; J44.9 Chronic obstructive pulmonary disease, unspecified; E03.9 Hypothyroidism, unspecified; I10 Essential (primary) hypertension; Z79.02 Long term (current) use of antithrombotics/antiplatelets; Z79.51 Long term (current) use of inhaled steroids; Z79.82 Long term (current) use of aspirin; Z79.890 Hormone replacement therapy; Z79.891 Long term (current) use of opiate analgesic; Z79.899 Other long term (current) drug therapy; Z91.048 Other nonmedicinal substance allergy status